=== PATIENT | male | born 1945 | race Caucasian/White ===

== ENCOUNTER → 2016-08-21 | Outpatient (CLI) | payer MEDICARE, BC ==
--- NOTE | 2016-08-23 11:26 | P.ARTDOP ---
Arterial Doppler LOWER EXTREMITY ARTERIAL DOPPLER: DATE OF SERVICE: 08/21/2016 Reason for study: Leg pain. Doppler waveforms: Multiphasic bilateral throughout. Pulse volume recording: Normal configuration. Pressure gradients: Nonsignificant. Ankle-brachial indices: Cannot occluded on the right. Greater than 1 on the left.. Toe pressures: 102 on the right, 121 on the left Impression: Normal flow pattern. Possibly some calcific wall disease not affecting flow..
== END | disposition home or self-care (01) ==
LOC: RADUSWWP 10:14
PROVIDERS: ATTEND Family Medicine
DX: I73.9 Peripheral vascular disease, unspecified (principal)
CPT/HCPCS: 93923

== ENCOUNTER → 2018-04-17 | Outpatient (CLI) | payer MEDICARE, BC ==
--- NOTE | 2018-04-17 19:30 | CT ---
EXAMINATION TYPE: CT abdomen pelvis w con DATE OF EXAM: 04/17/2018 COMPARISON: None HISTORY: Constipation. CT DLP: 2642 mGycm Automated exposure control for dose reduction was used. TECHNIQUE: Helical acquisition of images was performed from the lung bases through the pelvis. CONTRAST: Performed with Oral Contrast and with IV Contrast, patient injected with 100ml mL of Isovue 300. FINDINGS: Lung bases are clear. There is no pleural effusion. Heart size is normal. There is no pericardial eff usion. Liver spleen pancreas appear normal. The bile ducts are not dilated. There are clips from chol ecystectomy. Stomach appears normal. There is no adrenal mass. Kidneys show satisfactory contrast opacification. There is no hydronephrosi s. There is 1 cm cortical cyst posterior right kidney. The ureters are not dilated. There is no retro peritoneal adenopathy. Bladder distends smoothly. There is no inguinal hernia. There is no free fluid in the pelvis. There i s no ascites. Appendix appears normal. There is small umbilical hernia that contains fat. There is no evidence of free air. I see no intestinal wall thickening. There is no sign of a bowel obstruction. There is 15% anterior wedging of T12 that appears old. Abdominal aorta is atheromatous. There is mild retained fecal material throughout the large bowel. IMPRESSION: THERE IS EVIDENCE FOR MILD CONSTIPATION. NORMAL APPENDIX. NO SIGN OF ACUTE ABDOMEN AND PELVIS.
== END | disposition home or self-care (01) ==
LOC: RADCTMAIN 16:52
PROVIDERS: ATTEND Family Medicine
DX: K59.00 Constipation, unspecified (principal)
CPT/HCPCS: 82565; 84520; 74177; 36415; Q9967

== ENCOUNTER → 2019-08-21 | Outpatient (CLI) | payer MEDICARE, BC ==
[2019-08-21 12:48] LABS: Basophils # (A) 0.1 k/uL (0-0.2); Basophils % (A) 1 %; Eosinophils # (A) 0.4 k/uL (0-0.7); Eosinophils % (A) 4 %; HCT 52.7 % (39.0-53.0); HGB 16.9 gm/dL (13.0-17.5); Lymphocytes % (A) 19 %; MCH 29.2 pg (25.0-35.0); MCV 91.2 fL (80.0-100.0); Mean Platelet Volume 8.2; Monocytes # (A) 0.5 k/uL (0-1.0); Monocytes % (A) 5 %; Neutrophils # (A) 7.5 k/uL (1.3-7.7); Neutrophils % (A) 71 %; Platelet Count 326 k/uL (150-450); RBC 5.78 m/uL (4.30-5.90); RDW 12.9 % (11.5-15.5); WBC 10.6 k/uL (3.8-10.6)
[2019-08-21 14:20] LABS: Erythrocyte Sedimentation Rate 30 mm/hr (0-15)
[2019-08-21 21:20] LABS: C Reactive Protein 1.7 mg/dL (0.0-0.8)
== END | disposition home or self-care (01) ==
LOC: LABWHC1 12:00
PROVIDERS: ATTEND Podiatrist Foot & Ankle Surgery
DX: L08.9 Local infection of the skin and subcutaneous tissue, unspecified (principal); M19.90 Unspecified osteoarthritis, unspecified site; M10.9 Gout, unspecified
CPT/HCPCS: 36415; 84550; 85025; 85652; 86038; 86039; 86140; 86431

== ENCOUNTER → 2019-09-02 | Outpatient (CLI) | payer MEDICARE, BC ==
--- NOTE | 2019-09-03 15:03 | P.ARTDOP ---
Arterial Doppler LOWER EXTREMITY ARTERIAL DOPPLER: DATE OF SERVICE: 09/02/2019 Reason for study: Suspected lower extremity occlusive disease with left leg ul cer. Doppler waveforms: Multiphasic bilaterally throughout. Pulse volume recording: []. Pressure gradients: Mild gradient at the toe level. Ankle-brachial indices: Cannot occlude. Toe brachial indices: 0.59 on the right, 0.62 on the left Impression: Suspect calcific wall disease making upper levels unable to occlude. Waveforms and toe pressures suggests adequacy of pressure for healing. Pe rfusion suspected to be near normal. Clinical correlation recommended.
== END | disposition home or self-care (01) ==
LOC: RADUSWWP 13:18
PROVIDERS: ATTEND Family Medicine
DX: I73.9 Peripheral vascular disease, unspecified (principal)
CPT/HCPCS: 93923

== ENCOUNTER → 2019-09-11 | Outpatient (CLI) | payer MEDICARE, BC ==
--- NOTE | 2019-09-11 09:19 | US ---
EXAMINATION TYPE: US prostate transrectal DATE OF EXAM: 09/11/2019 COMPARISON: NONE CLINICAL HISTORY: Retention of Urine R33.9. Urinating issues per patient. Technologist called office- no PSA level available This examination was performed using the transrectal probe. EXAM MEASUREMENTS: Gland Size: 5.3 x 3.9 x 2.5 cm Volume: 26.4 ml Predicted PSA: 3.2 Actual PSA (if available):Not available at this time Peripheral gland appears coarse. Cystic appearing lesion in right apex region = 0.3 x 0.3 x 0.2 cm There may be some prostate calcification shadowing. No suspicious peripheral hypoechoic areas are josiah dent. There does appear to be a tiny cyst like area near the right apex. IMPRESSION: 1. Negative suspicious abnormalities prostate ultrasound. Predicted PSA = volume x 0.12 ng/ml Calculated Volume = 0.5236 x L x W x H
--- NOTE | 2019-09-11 10:04 | US ---
EXAMINATION TYPE: US pelvic limited DATE OF EXAM: 09/11/2019 COMPARISON: NONE CLINICAL HISTORY: Retention of Urine R33.9. Patient states urinating issues Bladder- anechoic Urinary jets not seen Postvoid images taken Postvoid volume = 34.8 ml Urinary bladder is sonolucent. Posterior wall appears normal. IMPRESSION: 1. Unremarkable male pelvic ultrasound
== END | disposition home or self-care (01) ==
LOC: RADUSWWP 07:05
PROVIDERS: ATTEND Family Medicine
DX: R33.9 Retention of urine, unspecified (principal)
CPT/HCPCS: 76857; 76872

== ENCOUNTER → 2019-10-09 | Outpatient (CLI) | payer MEDICARE, BC ==
--- NOTE | 2019-10-09 09:30 | CT ---
EXAMINATION TYPE: CT abdomen pelvis wo con DATE OF EXAM: 10/09/2019 COMPARISON: 04/17/2018 HISTORY: micro hematuria CT DLP: 1207 mGycm Examination of the solid and hollow viscera is limited given the lack of contrast. FINDINGS: LUNG BASES: No evidence for nodule. No evidence for infiltrate. Small sliding-type. LIVER/GB: Clips are noted. No space-occupying hepatic lesion. PANCREAS: No pancreatic mass identified. No inflammatory process seen. SPLEEN: No evidence for splenomegaly. No intrasplenic lesions seen. ADRENALS: No adrenal nodules identified. No evidence for thickening. KIDNEYS: Renal vascular calcifications noted. Hypoattenuating lesion lower pole right kidney is nonsp ecific given the lack of contrast although may reflect a small cyst. No nephrolithiasis. No hydroneph rosis. BOWEL: Appendix has a normal appearance. No evidence of bowel obstruction. No inflammatory process. Lymph nodes: No evidence for adenopathy greater than 1 cm. Abdominal aorta: Atheromatous changes seen. No evidence for aneurysm. Genital organs: No significant abnormality. Other: No significant abnormality. IMPRESSION: 1.Hypoattenuating lesion lower pole right kidney is nonspecific given the lack of contrast although m ay reflect a small cyst. Consider ultrasound correlation. 2. Renal vascular calcifications. No evidence for nephrolithiasis or hydronephrosis.
== END | disposition home or self-care (01) ==
LOC: RADCTMAIN 08:54
PROVIDERS: ATTEND Urology
DX: R31.1 Benign essential microscopic hematuria (principal)
CPT/HCPCS: 74176

== ENCOUNTER → 2019-12-06 | Outpatient (CLI) | payer MEDICARE, BC ==
--- NOTE | 2019-12-06 16:42 | MR ---
EXAMINATION TYPE: MR brain wo/w con DATE OF EXAM: 12/06/2019 COMPARISON: None HISTORY: Memory loss,recurrent falls CONTRAST: Standard multiplanar, multisequence MRI departmental protocol utilizing 12 mL intravenous Gadavist ga dolinium contrast. There is cerebral cortical atrophy. There is enlargement of the ventricles. There is no mass effect n or midline shift. There is no sign of intracranial hemorrhage. Diffusion images show no evidence of a n acute cortical infarct. There is 1.5 cm mucous retention cyst in the left maxillary sinus. The brai nstem is intact. On the T2 and FLAIR images there are multiple foci of increased signal adjacent to the lateral ventri cles. These are coalescent and measure up to 1 cm. Total number is more than 25. There are also some foci at the gonzalez-white matter junction of both parietal and frontal lobes. The cerebellum is intact. There is thinning of the corpus callosum. Sella turcica appears normal. The contrast images show no pathologic enhancement. There is normal enhancement of the venous sinuses . IMPRESSION: Cerebral atrophy. Mild hydrocephalus. White matter changes in both cerebral hemispheres that could relate to chronic small vessel ischemia or demyelinating disease.
== END | disposition home or self-care (01) ==
LOC: RADMRIMAIN 09:22
PROVIDERS: ATTEND Psychiatry & Neurology Neurology
DX: G91.9 Hydrocephalus, unspecified (principal); G31.9 Degenerative disease of nervous system, unspecified; R90.82 White matter disease, unspecified
CPT/HCPCS: 70553; A9585

== ENCOUNTER → 2021-03-15 | Outpatient (CLI) | payer MEDICARE, BC ==
--- NOTE | 2021-03-15 20:34 | CONS ---
CONSULTATION REASON FOR CONSULTATION: Sleep apnea. This patient is known to me. His last evaluation was done around 7 years ago. The patient was lost to followup and today he is coming in for re-evaluation regarding obstructive sleep apnea. He is known to have POLINA and the patient was given a CPAP unit. The patient has a functioning ResMed CPAP unit which is supposed to be set at a pressure of 13 cm of water. This was the last evaluation that was done on the machine. On today's compliancy evaluation, I noted the patient is currently on APAP mode, a pressure minimum of 5 and a maximum of 15. I also noted that the patient has lost a significant amount of weight, on the order of 55 pounds since his last evaluation. Based on the compliance data that was collected on the machine, the patient is on an automatic mode, as mentioned, and the patient has been averaging around 6 hours of APAP use per night. The average pressure delivered by the machine is around 9.1 cm of water. Leak is excessive at around 53 L/minute and he is using the AirFit F30 full-face mask. His AHI is down to 2.2. He is looking for alternative masks; something that covers his nose, knowing that the current mask that he has is causing a significant amount of leaks. His machine is functional. He is okay with APAP mode. He has no other new complaints otherwise for now. His comorbidities are extensive, including diabetes mellitus, hypertension, hyperlipidemia. While on the machine, the patient does not snore. He wakes up refreshed and alert. He is going to bed around 11 p.m., waking up at 9 a.m. in the morning and he spends approximately 10 hours in bed. As mentioned, he continues to lose weight. PAST MEDICAL HISTORY: 1. Obesity with significant weight loss. 2. Obstructive sleep apnea. 3. Diabetes mellitus. 4. Hypertension. 5. Hyperlipidemia. 6. History of skin cancer. PAST SURGICAL HISTORY: Includes cholecystectomy. DRUG ALLERGIES: NOT KNOWN. OUTPATIENT MEDICATION: Includes insulin, long-acting and short-acting. The doses are not known. Exact type is not known. He is also on amlodipine, atenolol, hydrochlorothiazide, Prilosec and aspirin. He is also on vitamin D supplements. I asked the patient to forward me the full medication list. SOCIAL HISTORY: Nonsmoker. No history of alcoholism. No history of IV drugs. FAMILY HISTORY: Negative for sleep apnea. REVIEW OF SYSTEMS: Fourteen-point review of systems was done. Of significance is the significant amount of weight loss that the patient has achieved over the past 6 years. No grinding of the teeth. No sleepwalking or sleeptalking. No anxiety or panic attacks. No heartburn. No chest pain. No altered mentation. PHYSICAL EXAMINATION: VITAL SIGNS: BP is 129/77, pulse 58, respirations 16, temperature 98.1, saturation 95% on room air. Neck size 18-1/2 inches. Height is 5 feet 10 inches, weight is 251, BMI 36. GENERAL APPEARANCE: Calm, comfortable. HEAD: Atraumatic, normocephalic. Neck is supple. No JVD. No goiter or neck masses. Mallampati class IV. LUNGS: Diminished; otherwise clear. Heart sounds are regular rate and rhythm. Normal S1, S2. No S3, S4. No murmurs. ABDOMEN: Soft, nontender. No organomegaly. EXTREMITIES: No edema. No cyanosis or clubbing. NEUROLOGIC: Awake and alert. There is no focal neurological deficit. IMPRESSION: 1. Symptomatic obstructive sleep apnea, currently on APAP mode, pressure minimum of 5, maximum of 15, with good compliancy. 2. Obesity with interval weight loss on the order of 50 pounds. Current body mass index is 36 and the patient's weight is 251. 3. Diabetes mellitus. 4. Hypertension. 5. Hyperlipidemia. 6. History of skin cancer, resected off the earlobe. PLAN: 1. Continue APAP mode at the same pressure settings, pressure minimum of 5, maximum of 15. 2. Discontinue the F30 and offer the patient an AirFit F20 medium-sized full-face mask. 3. Encourage further weight loss. 4. Keep the APAP mode. 5. See me back in a year's time in followup. Treatment is successful for now. MMODL / IJN: [id number] /
== END ==
LOC: SLEEP 14:32
PROVIDERS: ATTEND Internal Medicine Critical Care Medicine
DX: G47.33 Obstructive sleep apnea (adult) (pediatric) (principal); E66.9 Obesity, unspecified; E11.9 Type 2 diabetes mellitus without complications; I10 Essential (primary) hypertension; E78.5 Hyperlipidemia, unspecified; Z68.36 Body mass index [BMI] 36.0-36.9, adult; Z99.89 Dependence on other enabling machines and devices; Z85.828 Personal history of other malignant neoplasm of skin
CPT/HCPCS: 99211

== ENCOUNTER 2021-11-22 20:09 | Inpatient (IN) | payer MEDICARE, BC ==
[2021-11-22] MEDS ORDERED: SODIUM CHLORIDE 0.9% 1,000 ML IV ONE (20:47)
[2021-11-22] MEDS ORDERED: SODIUM CHLORIDE 0.9% 500 ML 500 ML IV ONE (20:47)
[2021-11-22 21:08] LABS: Basophils # (A) 0.1 k/uL (0-0.2); Basophils % (A) 1 %; Eosinophils # (A) 0.1 k/uL (0-0.7); Eosinophils % (A) 1 %; HCT 53.8 % (39.0-53.0); HGB 16.8 gm/dL (13.0-17.5); Lymphocytes # (A) 2.3 k/uL (1.0-4.8); Lymphocytes % (A) 24 %; MCH 29.5 pg (25.0-35.0); MCHC 31.3 g/dL (31.0-37.0); MCV 94.4 fL (80.0-100.0); Mean Platelet Volume 8.5; Monocytes # (A) 0.6 k/uL (0-1.0); Monocytes % (A) 6 %; Neutrophils # (A) 6.4 k/uL (1.3-7.7); Neutrophils % (A) 67 %; Platelet Count 244 k/uL (150-450); RDW 13.1 % (11.5-15.5); WBC 9.6 k/uL (3.8-10.6)
[2021-11-22 21:12] LABS: ALT 24 U/L (4-49); AST 41 U/L (17-59); African American GFR (CKD) >90 (>60 ml/min/1.73 sqM); Albumin 3.9 g/dL (3.5-5.0); Alkaline Phosphatase 150 U/L (38-126); Anion Gap 14 mmol/L; Blood Urea Nitrogen 19 mg/dL (9-20); Calcium 9.3 mg/dL (8.4-10.2); Carbon Dioxide 23 mmol/L (22-30); Chloride 102 mmol/L (98-107); Glucose 376 mg/dL (74-99); Non-African American GFR(CKD) 90 (>60 ml/min/1.73 sqM); Potassium 4.2 mmol/L (3.5-5.1); Sodium 139 mmol/L (137-145); Total Bilirubin 1.7 mg/dL (0.2-1.3); Total Protein 6.8 g/dL (6.3-8.2)
[2021-11-22 21:25] LABS: Glucose,Whole Blood 355 mg/dL (70-110)
[2021-11-22 21:30] LABS: Partial Thromboplastin Time 25.5 sec (22.0-30.0); Prothrombin Time 11.2 sec (9.0-12.0)
--- NOTE | 2021-11-22 21:40 | CT ---
EXAMINATION TYPE: CT brain wo con CT DLP: 1178.4 mGycm, Automated exposure control for dose reduction was used. DATE OF EXAM: 11/22/2021 9:25 PM COMPARISON: MRI brain 12/06/2019. CLINICAL INDICATION:Male, 76 years old with history of Altered mental status, TECHNIQUE: Brain: Axial CT images of the brain were obtained with coronal and sagittal reformats created and rev iewed. Contrast used: None. Oral contrast used: None. FINDINGS: Brain: Extra-axial spaces: No abnormal extra-axial fluid collections. Ventricular system: Dilatation in proportion to cerebral atrophy. Cerebral parenchyma: Cerebral atrophy. No acute intraparenchymal hemorrhage or mass effect. The gonzalez -white junction is well differentiated. Scattered hypoattenuating areas are seen within the white mat ter. Cerebellum: Unremarkable. Mass effect: No evidence of midline shift. Intracranial vasculature: unremarkable Soft tissues: Normal. Calvarium/osseous structures: No depressed skull fracture. Paranasal sinuses and mastoid air cells: Mild scattered paranasal sinus disease. Visualized orbits: Orbital contents are intact. IMPRESSION: 1. No acute intracranial process. 2. Nonspecific white matter changes, likely secondary to chronic small vessel ischemic disease.
[2021-11-22] MEDS ORDERED: INSULIN REGULAR 100 UNIT/ML VIAL (IV) SQ STA (22:56)
--- NOTE | 2021-11-22 23:01 | ED ---
Altered Mental Status HPI - General Chief Complaint: Altered Mental Status Stated Complaint: fall, ams, poss brain bleed Time Seen by Provider: 11/22/21 20:39 Source: patient Mode of arrival: wheelchair Limitations: no limitations - History of Present Illness Initial Comments: This 76-year-old male presents with after complaint of a fall. He appar ently will fall about once per week. He apparently did hit his head today. They saw their primary care physician and he wrote a outpatient prescription for a computed tomography scan of the brain but they brought the emergency department instead. relates the patient does have a history of dementia. He seems to be more confused over the past one week. The is quite exasperated with ability to take care of the patient at home. She states that it took 1.5 hours to get him dressed to go to doctor's office today. She states that his symptomatology for his dementia and mental confusion has extremely worsened over the last 1 week. - Related Data Home Medications Medication Instructions Recorded Confirmed Anastrozole 1 mg PO Q48H 11/22/21 11/22/21 Atorvastatin [Lipitor] 40 mg PO HS 11/22/21 11/22/21 Canagliflozin/Metformin HCl 1 tab PO BID 11/22/21 11/22/21 [Invokamet 150-1,000 mg Tablet] Donepezil HCl [Aricept] 10 mg PO DAILY 11/22/21 11/22/21 Famotidine [Pepcid] 40 mg PO BID 11/22/21 11/22/21 Insulin Aspart [NovoLOG Flexpen] 16 units SQ AC-BID@1200,1700 11/22/21 11/22/21 Insulin Aspart [NovoLOG Flexpen] 22 units SQ AC-BRKFST 11/22/21 11/22/21 Insulin Glargine,Hum.rec.anlog 40 units SQ HS 11/22/21 11/22/21 [Tousari Solostar] Losartan [Cozaar] 25 mg PO BID 11/22/21 11/22/21 Meclizine HCl 25 mg PO TID PRN 11/22/21 11/22/21 Tamsulosin HCl [Flomax] 0.4 mg PO DAILY 11/22/21 11/22/21 amLODIPine [Norvasc] 10 mg PO DAILY 11/22/21 11/22/21 hydroCHLOROthiazide 25 mg PO DAILY 11/22/21 11/22/21 Allergies Allergy/AdvReac Type Severity Reaction Status Date / Time No Known Allergies Allergy Verified 11/22/21 22:13 Review of Systems ROS Statement: Those systems with pertinent positive or pertinent negative responses have been documented in the HPI. ROS Other: All systems not noted in ROS Statement are negative. Past Medical History Past Medical History: Dementia, Diabetes Mellitus History of Any Multi-Drug Resistant Organisms: None Reported Past Surgical History: Cholecystectomy Past Psychological History: No Psychological Hx Reported Smoking Status: Never smoker Past Alcohol Use History: None Reported Past Drug Use History: None Reported General Exam Limitations: no limitations Course Vital Signs 11/22/21 20:13 Temperature 98.4 F Pulse Rate 82 Respiratory 18 Rate Blood Pressure 107/68 O2 Sat by Pulse 94 L Oximetry Medical Decision Making - Medical Decision Making The patient was seen and examined. All diagnostics are reviewed. Computed t omography scan of the brain was done and does not show any acute processes. The laboratories all essentially within normal limits except for elevation of his blood sugar. He is given some insulin IM. EKG is done and this shows a normal sinus rhythm at a rate of 75. There is no acute ST-T wave changes identified. The MT intervals 153, QRS duration is 92, and the QTC intervals 421. The states that she is significantly worried about his change in mental status over the past one week. She would like him admitted for further workup in this regard. She is unsure of her ability to take care of him at home. She is requesting neurology consultation. Patient will be admitted to internal medicine with neurology to consult. - Lab Data Result diagrams: 11/22/21 20:58 11/22/21 20:58 Lab Results 11/22/21 11/22/21 11/22/21 Range/Units 20:58 20:58 20:58 WBC 9.6 (3.8-10.6) k/uL RBC 5.70 (4.30-5.90) m/uL Hgb 16.8 (13.0-17.5) gm/dL Hct 53.8 H (39.0-53.0) % MCV 94.4 (80.0-100.0) fL MCH 29.5 (25.0-35.0) pg MCHC 31.3 (31.0-37.0) g/dL RDW 13.1 (11.5-15.5) % Plt Count 244 (150-450) k/uL MPV 8.5 Neutrophils % 67 % Lymphocytes % 24 % Monocytes % 6 % Eosinophils % 1 % Basophils % 1 % Neutrophils # 6.4 (1.3-7.7) k/uL Lymphocytes # 2.3 (1.0-4.8) k/uL Monocytes # 0.6 (0-1.0) k/uL Eosinophils # 0.1 (0-0.7) k/uL Basophils # 0.1 (0-0.2) k/uL PT 11.2 (9.0-12.0) sec INR 1.0 (<1.2) APTT 25.5 (22.0-30.0) sec Sodium 139 (137-145) mmol/L Potassium 4.2 (3.5-5.1) mmol/L Chloride 102 (98-107) mmol/L Carbon Dioxide 23 (22-30) mmol/L Anion Gap 14 mmol/L BUN 19 (9-20) mg/dL Creatinine 0.73 (0.66-1.25) mg/dL Est GFR (CKD-EPI)AfAm >90 (>60 ml/min/1.73 sqM) Est GFR (CKD-EPI)NonAf 90 (>60 ml/min/1.73 sqM) Glucose 376 H (74-99) mg/dL POC Glucose (mg/dL) (70-110) mg/dL POC Glu Balance Assembler ID Calcium 9.3 (8.4-10.2) mg/dL Total Bilirubin 1.7 H (0.2-1.3) mg/dL AST 41 (17-59) U/L ALT 24 (4-49) U/L Alkaline Phosphatase 150 H (38-126) U/L Ammonia (<30) umol/L Total Protein 6.8 (6.3-8.2) g/dL Albumin 3.9 (3.5-5.0) g/dL 11/22/21 11/22/21 Range/Units 20:58 21:24 WBC (3.8-10.6) k/uL RBC (4.30-5.90) m/uL Hgb (13.0-17.5) gm/dL Hct (39.0-53.0) % MCV (80.0-100.0) fL MCH (25.0-35.0) pg MCHC (31.0-37.0) g/dL RDW (11.5-15.5) % Plt Count (150-450) k/uL MPV Neutrophils % % Lymphocytes % % Monocytes % % Eosinophils % % Basophils % % Neutrophils # (1.3-7.7) k/uL Lymphocytes # (1.0-4.8) k/uL Monocytes # (0-1.0) k/uL Eosinophils # (0-0.7) k/uL Basophils # (0-0.2) k/uL PT (9.0-12.0) sec INR (<1.2) APTT (22.0-30.0) sec Sodium (137-145) mmol/L Potassium (3.5-5.1) mmol/L Chloride (98-107) mmol/L Carbon Dioxide (22-30) mmol/L Anion Gap mmol/L BUN (9-20) mg/dL Creatinine (0.66-1.25) mg/dL Est GFR (CKD-EPI)AfAm (>60 ml/min/1.73 sqM) Est GFR (CKD-EPI)NonAf (>60 ml/min/1.73 sqM) Glucose (74-99) mg/dL POC Glucose (mg/dL) 355 H (70-110) mg/dL POC Glu Balance Assembler ID Shantal Brandon Calcium (8.4-10.2) mg/dL Total Bilirubin (0.2-1.3) mg/dL AST (17-59) U/L ALT (4-49) U/L Alkaline Phosphatase (38-126) U/L Ammonia <9 (<30) umol/L Total Protein (6.3-8.2) g/dL Albumin (3.5-5.0) g/dL Disposition Clinical Impression: Altered mental status, Dementia, Recurrent falls, Head injury, Diabetes mellitus, Hyperglycemia Disposition: ADMITTED IP TO THIS [facility] Condition: Fair Is patient prescribed a controlled substance at d/c from ED?: No Time of Disposition: 23:16 Decision Date: 11/22/21 Decision Time: 23:16
[2021-11-22] MEDS ORDERED: ONDANSETRON 4 MG/2 ML VIAL IVP PRN (23:17)
[2021-11-22] MEDS ORDERED: NALOXONE 0.4 MG/ML 1 ML VIAL IV PRN (23:17)
[2021-11-22] MEDS ORDERED: ACETAMINOPHEN TAB 325 MG TAB PO PRN (23:17)
[2021-11-22] MEDS ORDERED: MECLIZINE 25 MG TAB PO PRN (23:21)
[2021-11-23 00:04] LABS: Appearance,Urine Clear (Clear); Bilirubin,Urine Negative (Negative); Blood,Urine Negative (Negative); Color,Urine Yellow; Glucose,Urine (UA) 4+ (Negative); Leukocyte Esterase,Urine Negative (Negative); Nitrite,Urine Negative (Negative); PH, Urine 5.5 (5.0-8.0); Protein,Urine Negative (Negative); Specific Gravity,Urine 1.034 (1.001-1.035); Urobilinogen,Urine <2.0 mg/dL (<2.0)
[2021-11-23 00:06] LABS: Ketones,Urine 2+ (Negative)
[2021-11-23 00:18] LABS: Amphetamine Screen,Urine Not Detected (NotDetected); Benzodiazepines Screen,Urine Not Detected (NotDetected); Cocaine Screen,Urine Not Detected (NotDetected); Methadone Screen, Urine Not Detected (NotDetected); Opiate Screen,Urine Not Detected (NotDetected); Phencyclidine Screen,Urine Not Detected (NotDetected); Tricyclic Antidepressant,Urine Not Detected (NotDetected); Urn Cannabinoid Scrn Not Detected (NotDetected)
[2021-11-23 00:19] LABS: Barbiturate Screen,Urine Not Detected (NotDetected); Oxycodone Screen, Urine Not Detected (NotDetected)
[2021-11-23 00:26] LABS: Glucose,Whole Blood 271 mg/dL (70-110)
[2021-11-23] MEDS: ANASTROZOLE 1 MG TAB PO SCH (00:35)
--- NOTE | 2021-11-23 02:44 | P.HPIM ---
History of Present Illness H&P Date: 11/22/21 Chief Complaint: FALL AT HOME 76 year old male with DM , Hypertension , Dementia patient brought in by his , for evaluation after sustaining a fall at home. patient seems to be alert and awake, is not at bed side at this time. patient reports that he has been falling frequently recently due to missing a step , or tripping over something, and sometimes he just feels his legs giving out for no reason. he denies any associated symptoms of dizziness, chest pain , SOB, or palpitations, he denies any focal neuro deficits, and denies any loss of consciousness. however this time he has hit his head, he denies any headache, denies being on any blood thinners. he claims to feeling perfectly fine at time of my evaluation. the reported to the ED, that it is getting extremly hard for her to take care of her . she claims that his dementia and mental status over all has been deteriorating pretty fast recently . she reports that it took her over 1.5 hrs to get him to get dressed and go to the doctor for evaluation today. there is no report of any fever, chills, urinary changes, GI bleeding, abd pain , chest pain , diarrhea, headache, or any other focal neuro deficits. workup in the ED was pretty much benign Brain CT no acute pathology patient denies smoking , illicit drugs and alcohol Review of Systems Pertinent positives as noted in HPI. All other systems were reviewed and are negative Past Medical History Past Medical History: Dementia, Diabetes Mellitus History of Any Multi-Drug Resistant Organisms: None Reported Past Surgical History: Cholecystectomy Past Psychological History: No Psychological Hx Reported Smoking Status: Never smoker Past Alcohol Use History: None Reported Past Drug Use History: None Reported - Past Family History family Additional Family Medical History / Comment(s): DM, CAD Medications and Allergies Home Medications Medication Instructions Recorded Confirmed Type Anastrozole 1 mg PO Q48H 11/22/21 11/22/21 History Atorvastatin [Lipitor] 40 mg PO HS 11/22/21 11/22/21 History Canagliflozin/Metformin HCl 1 tab PO BID 11/22/21 11/22/21 History [Invokamet 150-1,000 mg Tablet] Donepezil HCl [Aricept] 10 mg PO DAILY 11/22/21 11/22/21 History Famotidine [Pepcid] 40 mg PO BID 11/22/21 11/22/21 History Insulin Aspart [NovoLOG Flexpen] 16 units SQ AC-BID@1200,1700 11/22/21 11/22/21 History Insulin Aspart [NovoLOG Flexpen] 22 units SQ AC-BRKFST 11/22/21 11/22/21 History Insulin Glargine,Hum.rec.anlog 40 units SQ HS 11/22/21 11/22/21 History [Tousari Solostar] Losartan [Cozaar] 25 mg PO BID 11/22/21 11/22/21 History Meclizine HCl 25 mg PO TID PRN 11/22/21 11/22/21 History Tamsulosin HCl [Flomax] 0.4 mg PO DAILY 11/22/21 11/22/21 History amLODIPine [Norvasc] 10 mg PO DAILY 11/22/21 11/22/21 History hydroCHLOROthiazide 25 mg PO DAILY 11/22/21 11/22/21 History Allergies Allergy/AdvReac Type Severity Reaction Status Date / Time No Known Allergies Allergy Verified 11/22/21 22:13 Physical Exam Vitals: Vital Signs Temp Pulse Resp BP Pulse Ox 11/22/21 20:13 98.4 F 82 18 107/68 94 L Intake and Output 11/22/21 11/22/21 11/23/21 14:59 22:59 06:59 Other: Weight 105.233 kg Constitutional: No acute distress, conversant, pleasant Eyes: Anicteric sclerae, moist conjunctiva, Pupils equal round reactive to light ENMT: NC/AT, left ear with some deformity in the pinna of external ear due to surgical excision of cancer Oropharynx clear, no erythema, or exudates Neck: Supple, , no masses, or JVD No carotid bruits No thyromegaly Lungs: Clear to auscultation Clear to percussion Normal respiratory effort, no accessory muscle use Cardiovascular: Heart regular in rate and rhythm, No murmurs, gallops, or rubs No peripheral edema Abdominal: Soft Nontender, no guarding, rebound or rigidity Abdomen moving with respiration Normoactive bowel sounds No hepatomegaly, No splenomegaly No palpable mass No abdominal wall hernia noted Skin: Normal temperature, tone, texture, turgor No induration No subcutaneous nodules No rash, lesions No ulcers Extremities: No digital cyanosis No clubbing Pedal pulses intact and symmetrical Radial pulses intact and symmetrical No calf tenderness Psychiatric: Alert and oriented to person, place and time Appropriate affect fair judgement Neuro Muscles Strength 5/5 in all 4 extremities Sensation to light touch grossly present throughout Cranial nerves II-XII grossly intact No focal sensory deficits Lymphatics: no palpable cervical or supraclavicular , or inguinal lymph nodes Results CBC & Chem 7: 11/22/21 20:58 11/22/21 20:58 Labs: Abnormal Lab Results - Last 24 Hours (Table) 11/22/21 11/22/21 11/22/21 Range/Units 20:58 20:58 21:24 Hct 53.8 H (39.0-53.0) % Glucose 376 H (74-99) mg/dL POC Glucose (mg/dL) 355 H (70-110) mg/dL Total Bilirubin 1.7 H (0.2-1.3) mg/dL Alkaline Phosphatase 150 H (38-126) U/L Assessment and Plan Assessment: acute metabolic encephalopathy , resolved frequent falls progressive dementia UA showed no evidence of infectious process no leukocytosis , no fever blood work over all unremarkable except for hyperglycemia fall precautions neurology eval Brain CT no acute pahtology EKG NSR check Vitd D 25 hydroxy, B12 level chronic conditions DM , hyperglycemia , check A1C resume insulin hypertension , controlled , resume homemeds amlodipin, losartan , HCTZ HLD , resume statin DVT PPX lovenox full code
[2021-11-23 08:39] LABS: Glucose,Whole Blood 287 mg/dL (70-110)
[2021-11-23] MEDS ORDERED: CANAGLIFLOZIN PO SCH (09:00)
[2021-11-23] MEDS ORDERED: [UNRECOGNIZED DRUG - OTHER] PO SCH (09:00)
[2021-11-23] MEDS ORDERED: METFORMIN HCL PO SCH (09:00)
[2021-11-23] MEDS: FAMOTIDINE 20 MG TAB PO SCH ×2 (09:51→22:40)
[2021-11-23] MEDS: ENOXAPARIN 40 MG/0.4 ML SYRINGE SQ SCH (09:51)
[2021-11-23] MEDS: LOSARTAN 25 MG TAB PO SCH ×2 (09:52→22:41)
[2021-11-23] MEDS: DONEPEZIL 10 MG TAB PO SCH (09:52)
[2021-11-23] MEDS: amLODIPine 10 MG TAB PO SCH (09:52)
[2021-11-23] MEDS: TAMSULOSIN 0.4 MG CAP.ER.24H PO SCH (09:52)
[2021-11-23] MEDS: hydroCHLOROthiazide 25 MG TAB PO SCH (09:52)
[2021-11-23 09:58] LABS: African American GFR (CKD) 105.5 (60.0-200.0); Anion Gap 12.1 mmol/L (10.00-18.00); Blood Urea Nitrogen 16.8 mg/dL (9.0-27.0); Carbon Dioxide 24.9 mmol/L (20.0-27.5); Potassium 3.6 mmol/L (3.5-5.5)
[2021-11-23] MEDS: INSULIN ASPART (NovoLOG) 100 UNIT/ML VIAL SQ SCH ×3 (09:59→17:24)
[2021-11-23] MEDS ORDERED: HALOPERIDOL LACTATE 5 MG/ML 1 ML VIAL IVP PRN (12:38)
[2021-11-23] MEDS ORDERED: HALOPERIDOL LACTATE 5 MG/ML 1 ML VIAL IM PRN (13:33)
--- NOTE | 2021-11-23 13:37 | P.CN ---
Psychiatric Consult - . Consult date: 11/23/21 Consult:: 11/23/21 13:08 IDENTIFYING DATA: This patient is a 76-year-old male who currently lives with his at home, has history of dementia REASON FOR REFERRAL: Psychiatry was consulted for dementia with behavioral disturbance HISTORY OF PRESENT ILLNESS: The patient presented to the hospital on 11/22 and came into the ER with his . apparently had stated the patient had a fall recently and has been having a fall and free week or so. She is stating that his beginning to be more difficult to take care of him at home. He apparently hit his head recently after a fall. He apparently has a history of dementia and has been more confused lately according to . Patient had a computed tomography scan of his brain which did not show any acute changes. Patient's UDS was negative. Patient was seen today laying in bed and was attempting to have the technical operations specialist putt electrodes on him and was agreeable to speak to process description writer. Patient was oriented to his name only, did not know where he was and did not know today's date. He was tangential at times and illogical. She was attending to cooperate however was inappropriate at times. He did admit to feeling irritable and had an irritable tone of voice. He also did admit to some mood swings. He claims that "don't get me upset now". He denied any depression or any anxiety at this time. He has very poor insight appears to be chronic and very poor judgment. He denies any problems with sleep or appetite. At this time patient denies any suicidal or homical ideations, intent or plan. Patient denies any auditory, visual hallucinations. patient denies using any r ecreational drugs. process description writer called patients Concha, she states that patient has had a decline in his functional status, unable to dress himself or care for himself. She states that he has been irritable lately for the past week or so. no violence. has been more demanding. having poor sleep. she states that he has not endorsed any auditory or visual hallucinations or no suicidal ideations or homicidal ideations Case Maker was a poor historian and was not able to provide most of the rest of the history. PAST PSYCHIATRIC HISTORY: Patient has a a history of dementia. patient is currentlyu on aricept at nightime as a cognitive enhancer. Patient denies any previous psychiatric hospitalizations. Patient denies any psychiatric outpatient follow-up. Past Medical History: Dementia, Diabetes Mellitus ALLERGIES: as per EMR. CHEMICAL DEPENDENCY HISTORY: as per HPI. FAMILY PSYCHIATRIC/SUBSTANCE USE HISTORY: unable to assess SOCIAL HISTORY: unable to assess. Patient lives at home with his . MENTAL STATUS EXAM: General Appearance: Patient appears to be overweight, eldderly, stated age is alert, pleasant, and irritable at times, uncooperative. Patient appears to have fair hygiene and grooming wearing hospital gown with poor eye contact. Behavior: Patient is calmly lying in bed without any agitated behavior. irritable at times but attempting to cooperate. Speech: Patient's speech is fluent and nonpressured. concrete Mood/Affect: Patient reports their mood is "ok", affect is congruent and constricted Suicidality/Homicidality: Patient denies having any suicidal or homicidal i deation intent or plan. Perceptions: Patient denies any visual hallucinations and denies any auditory hallucinations Though content/process: There is no evidence of any delusional thought content. he is concrete, poverty of content. illogical at times. Memory and concentration: AOX1, does not know todays date or place, poor conctration. Cannot spell "WORLD" backwards Judgment and insight: chornically limited IMPRESSIONS: Dementia with behavioral disturbances PLAN: -At this time patient DOES NOT meet criteria for inpatient psychiatric admission. -Patient DOES NOT have decision making capacity at this time and is unable to reason through and communicate/appreciate the risks, benefits and alternatives to treatment. -Delirium precautions recommended with patient including - avoiding use of narcotics and STRAIGHT TOOTH GEAR GENERATOR OPERATOR sedatives, limit anticholinergic medications when possible, frequent re-orientation, minimize use of restraints, open window shades during the day and close them at night -Would recommend the following medication changes/additions: start seroquel 25 mg qhs for sleep/mood stabilization/aggresion. start depakote 250 mg bid for mood stabilization. -Communicated plan to patient's nurse -Will continue to follow along -Please contact with any questions.
--- NOTE | 2021-11-23 14:19 | P.CNNES ---
History of Present Illness Consult date: 11/23/21 Requesting physician: Tre Minaya Reason for Consult: Confusion History of Present Illness: Patient is a 76-year-old male was brought to the hospital yesterday at 8:52 PM for altered mental status. Patient has dementia, not able to provide any history. He is periodically yelling "help", "I have been held against my will". He appears somewhat paranoid as mentioned in the examination section. I spoke to patient's on the phone, who provided with a history. She mentioned that patient has history of slight dementia for last 1 year. He was still functioning well. However it has rapidly got worse in the last 6 days. Patient's mentions that he fell about a week ago and he has been confused since then. He is very confused, does not know what day is it, cannot find things, completely disoriented, agitated. He had undergone computed tomography scan of head as an outpatient by his primary physician Dr. Garvin, which was read as normal. He also has been complaining of dizziness, cannot get dressed, not functioning at all. Patient does have urgency of urination, cannot hold urine if not close to the bathroom. She also mentions that he has been having eyes staring spells in space. Someone talks to him, he cannot respond. He just sits there until he snaps out of it. It is occurring about 2-3 times a day, lasting for 5 minutes each. One time she noticed that his face was slightly dr oopy. Vital signs arrival blood pressure 107/68 pulse rate 82 temperature 98.4. Blood test shows normal CBC, PT/PTT, normal CMP. Blood glucose is elevated to 76. Vitamin B12 453, vitamin D 22.3. UA negative. Urine drug screen negative. Hemoglobin A1c 8.9. CT head showed no acute process. Nonspecific white matter changes, likely secondary to chronic small vessel ischemic disease. EKG shows sinus rhythm. Borderline left axis deviation. Patient had an MRI of the brain performed on 12/06/2019, which reported as mild hydrocephalus. I personally reviewed current CT head and previous MRI. No definitive evidence of hydrocephalus. Amount of central atrophy is somewhat consistent with amount of cortical atrophy. Patient has history of diabetes for last 35 years and hypertension. No history of tobacco or alcohol use. Home medications include Flomax, meclizine, insulin, metformin, donepezil 10 mg, amlodipine 10 mg, losartan 25 mg twice a day, HCTZ 25 mg daily, Pepcid, Lipitor 40 mg and Anastrozole. He has been on donepezil for last 1 year. They have one child who lives in [place]. Review of Systems Patient would not cooperate with the examination, all review of systems. I spoke to patient's , who denied any other significant issues except as mentioned in HPI. Spoke to the nurses well. ROS unobtainable: due to mental status Past Medical History Past Medical History: Dementia, Diabetes Mellitus History of Any Multi-Drug Resistant Organisms: None Reported Past Surgical History: Cholecystectomy Past Psychological History: No Psychological Hx Reported Smoking Status: Never smoker Past Alcohol Use History: None Reported Past Drug Use History: None Reported - Past Family History family Additional Family Medical History / Comment(s): DM, CAD Father Family Medical History: Myocardial Infarction (MO) Additional Family Medical History / Comment(s): Father "rather young" of a MO Mother Family Medical History: Diabetes Mellitus, Renal Disease Additional Family Medical History / Comment(s): Mother had diabetes and refused dialysis. Medications and Allergies Home Medications Medication Instructions Recorded Confirmed Type Anastrozole 1 mg PO Q48H 11/22/21 11/22/21 History Atorvastatin [Lipitor] 40 mg PO HS 11/22/21 11/22/21 History Canagliflozin/Metformin HCl 1 tab PO BID 11/22/21 11/22/21 History [Invokamet 150-1,000 mg Tablet] Donepezil HCl [Aricept] 10 mg PO DAILY 11/22/21 11/22/21 History Famotidine [Pepcid] 40 mg PO BID 11/22/21 11/22/21 History Insulin Aspart [NovoLOG Flexpen] 16 units SQ AC-BID@1200,1700 11/22/21 11/22/21 History Insulin Aspart [NovoLOG Flexpen] 22 units SQ AC-BRKFST 11/22/21 11/22/21 History Insulin Glargine,Hum.rec.anlog 40 units SQ HS 11/22/21 11/22/21 History [Tozachary Solostar] Losartan [Cozaar] 25 mg PO BID 11/22/21 11/22/21 History Meclizine HCl 25 mg PO TID PRN 11/22/21 11/22/21 History Tamsulosin HCl [Flomax] 0.4 mg PO DAILY 11/22/21 11/22/21 History amLODIPine [Norvasc] 10 mg PO DAILY 11/22/21 11/22/21 History hydroCHLOROthiazide 25 mg PO DAILY 11/22/21 11/22/21 History Allergies Allergy/AdvReac Type Severity Reaction Status Date / Time No Known Allergies Allergy Verified 11/22/21 22:13 Physical Examination - Vital Signs Vital Signs: Vital Signs Temp Pulse Resp BP Pulse Ox 11/23/21 10:00 90 18 127/70 94 L 11/23/21 03:02 69 16 126/69 95 11/22/21 20:13 98.4 F 82 18 107/68 94 L Intake and Output 11/22/21 11/23/21 11/23/21 22:59 06:59 14:59 Other: Weight 105.233 kg Patient is an elderly male, in no acute distress. Patient is alert awake, very confused, periodically yelling "help! I have been held against my will". He states "I have been denied my rights". He did not allow me to examine, stating that "my family doctor did full examination and I have no reason to undergo further examination". He would not tell me the month or the year, appears he does not know either. Could not tell the city or state he lives in. He appears paranoid stating "you are a scam, may be it's about money" Speech and language functions are normal. Patient can name and repeat very well. No aphasia or dysarthria. Attention, concentration and fund of knowledge is very limited. On cranial nerve examination, pupils are equal, round and reacting to light, he did not cooperate with visual field testing. Extraocular muscles are intact with no nystagmus. Face is symmetric, tongue protrudes to the midline. He did not cooperate with testing for the palatal elevation, or the shoulder shrug. His hearing appears fairly intact. On muscle strength testing, there is no pronator drift. Patient did not cooperate with detailed examination. It appears he resists any movement, and appears very strong in his arms and legs. He moves all 4 extremities equally. Deep tendon reflexes he did not get me examine. Plantars are withdrawal. Sensory to touch did not cooperate. Cerebellar function did not cooperate. Tone and bulk of muscles normal. Gait deferred.. On general examination, there is no carotid bruit or murmur, S1-S2 audible. Chest is clear on consultation. Abdomen is soft nontender. No organomegaly, bowel sounds present. Peripheral pulses are present. No edema. Results - Laboratory Findings CBC and BMP: 11/22/21 20:58 11/23/21 05:39 Abnormal Lab Findings: Abnormal Labs 11/22/21 11/22/21 11/22/21 20:58 20:58 21:24 Hct 53.8 H BUN/Creatinine Ratio Glucose 376 H POC Glucose (mg/dL) 355 H Hemoglobin A1c Total Bilirubin 1.7 H Alkaline Phosphatase 150 H Vitamin D 25-Hydroxy Urine Glucose (UA) Urine Ketones 11/22/21 11/23/21 11/23/21 23:50 00:24 05:39 Hct BUN/Creatinine Ratio 24.00 H Glucose 316 H POC Glucose (mg/dL) 271 H Hemoglobin A1c Total Bilirubin Alkaline Phosphatase Vitamin D 25-Hydroxy 22.3 L Urine Glucose (UA) 4+ H Urine Ketones 2+ H 11/23/21 11/23/21 05:39 08:38 Hct BUN/Creatinine Ratio Glucose POC Glucose (mg/dL) 287 H Hemoglobin A1c 8.9 H Total Bilirubin Alkaline Phosphatase Vitamin D 25-Hydroxy Urine Glucose (UA) Urine Ketones Assessment and Plan Assessment: * Altered mental status, probable due to dementia with behavioral disturbance. * Staring spells, rule out seizures versus TIA, versus behavioral related spells. * Diabetes, poorly controlled. Plan: * Patient has presented with behavioral disturbances related to dementia. We will consult psychiatry. * Continue Aricept 10 mg daily. We will also start Namenda 5 mg twice a day. After one week, the dose can be escalated gradually to 10 mg twice a day. * Haldol 5 mg IV/IM every 6 hours when necessary agitation pending psychiatry evaluation and recommendations. * EEG rule out epileptiform activity. * MRI brain. * Recommend optimize control of diabetes. * Patient currently not on any antiplatelet medication. He does have vascular risk factors. Start aspirin 81 mg daily. * Discussed with patient's in detail. * Neurology will follow. Thank you for the consult.
--- NOTE | 2021-11-23 14:57 | P.PN ---
Subjective Progress Note Date: 11/23/21 Hospital course: Patient is a 76-year-old male with a past medical history of dementia, hypertension, and diabetes mellitus. Patient presented to our facility 11/22/21 with a chief complaint of worsening mentation and recurrent falls at home. Per documentation patient's mental status has been significantly deteriorating rapidly and his is no longer able to care for him in their home. CT head negative for acute intercranial process. CBC, coags, and CMP showing no significant abnormalities. Urinalysis negative for infection and urine drug screen negative. EKG revealed sinus rhythm at 75 bpm with n occasional PVC and no significant T-wave or ST abnormalities showing no signs of acute ischemia. Physical exam: Patient seen and fully evaluated at bedside this morning. Patient alert to self only and confused to place, time, and situation. Patient aggressive and not following commands. Patient stating that, "you're the Lady of and are not ready to yet so go away". During assessment patient swung fist in attempt to strike and was able to successfully kick me when I was assessing his peripheral pulses and lower extremities for edema. Unable to reorient patient at this time. Sitter to be brought to bedside to maintain patient's safety. Vital signs reviewed and stable. General: Nontoxic, no distress and appears stated age. Derm: Skin warm and dry, normal coloration for ethnicity. Head: Atraumatic, normocephalic and symmetric. Eyes: EOMs intact, no lid lag, and anicteric sclera Mouth: no lip lesions, mucus membranes moist Cardiovascular: regular rate and rhythm with normal S1S2, no murmur, positive posterior tibial pulses bilaterally, and cap refill < 2 seconds. Lungs: Respirations even, regular, and unlabored on room air. Lungs CTA bilaterally, no rhonchi, no rales, no wheezing, and no accessory muscle usage. Abdominal: soft, nontender to palpation, no guarding, no appreciable organomegaly Ext: ROM intact. No gross muscle atrophy, no edema, no contractures Neuro: Speech clear, face symmetrical and CN II-XII grossly intact with no noted focal neuro deficits Psych: Alert and oriented to person only and is confused to place, time, and situation. Patient exhibiting aggressive behaviors and difficult to reorientate. Assessment and Plan of Care: Dementia with aggressive behaviors/behavioral disturbances Recurrent falls -CT head negative for acute intercranial process revealing nonspecific white matter changes likely secondary to chronic small vessel ischemic disease. -Psychiatry following, appreciate further recommendations -Neurology following, appreciate further recommendations -Case management consulted for assistance with placement. -TSH with free T4 to be completed. -MRI and EEG to be completed per recommendations of neurology -Psychiatry starting patient on Seroquel 25 mg nightly and Depakote 250 mg twice daily for mood stabilization. -Fall precautions and neuro checks to remain in place. Hypertension -Monitor vital signs and continue daily medication regimen with losartan, amlodipine and hydrochlorothiazide. Diabetes mellitus -Glycemic protocol with long-acting Levemir 40 units nightly and scheduled NovoLog with meals. CODE STATUS: Full code DVT prophylaxis: Lovenox Discussed with: Patient and RN Anticipated discharge date: Clinical course to determine Anticipated discharge place: Home versus SNF A total of 35 minutes was spent on the care of this complex patient more than 50% of the time was spent in counseling and care coordination. Objective - Vital Signs Vital signs: Vital Signs Temp 98.4 F 11/22/21 20:13 Pulse 69 11/23/21 03:02 Resp 16 11/23/21 03:02 BP 126/69 11/23/21 03:02 Pulse Ox 95 11/23/21 03:02 FiO2 Intake & Output 11/22/21 11/23/21 11/23/21 18:59 06:59 18:59 Weight 105.233 kg - Labs CBC & Chem 7: 11/22/21 20:58 11/23/21 05:39 Labs: Abnormal Lab Results - Last 24 Hours (Table) 11/22/21 11/22/21 11/22/21 Range/Units 20:58 20:58 21:24 Hct 53.8 H (39.0-53.0) % Glucose 376 H (74-99) mg/dL POC Glucose (mg/dL) 355 H (70-110) mg/dL Total Bilirubin 1.7 H (0.2-1.3) mg/dL Alkaline Phosphatase 150 H (38-126) U/L Urine Glucose (UA) (Negative) Urine Ketones (Negative) 11/22/21 11/23/21 Range/Units 23:50 00:24 Hct (39.0-53.0) % Glucose (74-99) mg/dL POC Glucose (mg/dL) 271 H (70-110) mg/dL Total Bilirubin (0.2-1.3) mg/dL Alkaline Phosphatase (38-126) U/L Urine Glucose (UA) 4+ H (Negative) Urine Ketones 2+ H (Negative)
[2021-11-23 14:59] LABS: Glucose,Whole Blood 161 mg/dL (70-110)
[2021-11-23] MEDS: DIVALPROEX ER 250 MG TAB.ER.24H PO SCH ×2 (15:09→22:54)
[2021-11-23 21:27] LABS: Glucose,Whole Blood 313 mg/dL (70-110)
[2021-11-23] MEDS: ATORVASTATIN 40 MG TAB PO SCH (22:40)
[2021-11-23] MEDS: QUEtiapine 25 MG TAB PO SCH (22:41)
[2021-11-23] MEDS: INSULIN DETEMIR (LEVEMIR) 100 UNIT/ML SYR SQ SCH (22:41)
--- NOTE | 2021-11-24 00:38 | EEG ---
ELECTROENCEPHALOGRAM REPORT PREAMBLE: This is a 76-year-old male with altered mental status, dementia and staring spells. This study is performed to rule out any epileptiform activity. EEG FINDINGS: This is a 21-channel digital EEG recorded with video competent, utilizing 10/20 international system with referential and bipolar montages. Background consists of moderately well-developed, not very well regulated, mixed frequencies of 5-7 hertz theta activity in posterior head region in bilateral hemispheric region. Background does not seem to be reactive to eye opening and closing. Photic stimulation was not performed. Different stages of sleep were not seen. No focal or generalized epileptiform activity was seen. IMPRESSION: This is an abnormal EEG due to background slowing of moderate degree. This is suggestive of generalized cerebral dysfunction as can be seen with toxic metabolic encephalopathy or related to diffuse structural brain abnormality. No epileptiform activity was seen. MMODL / IJN: [id number] /
[2021-11-24 07:02] LABS: Glucose,Whole Blood 205 mg/dL (70-110)
[2021-11-24] MEDS: TAMSULOSIN 0.4 MG CAP.ER.24H PO SCH (09:30)
[2021-11-24] MEDS: DONEPEZIL 10 MG TAB PO SCH (09:30)
[2021-11-24] MEDS: MEMANTINE 5 MG TAB PO SCH ×2 (09:30→22:32)
[2021-11-24] MEDS: hydroCHLOROthiazide 25 MG TAB PO SCH (09:30)
[2021-11-24] MEDS: INSULIN ASPART (NovoLOG) 100 UNIT/ML VIAL SQ SCH ×3 (09:30→17:48)
[2021-11-24] MEDS: ASPIRIN 81 MG PO SCH (09:30)
[2021-11-24] MEDS: LOSARTAN 25 MG TAB PO SCH ×2 (09:30→22:31)
[2021-11-24] MEDS: FAMOTIDINE 20 MG TAB PO SCH ×2 (09:30→22:31)
[2021-11-24] MEDS: amLODIPine 10 MG TAB PO SCH (09:30)
[2021-11-24] MEDS: ENOXAPARIN 40 MG/0.4 ML SYRINGE SQ SCH (09:31)
[2021-11-24] MEDS: DIVALPROEX ER 250 MG TAB.ER.24H PO SCH ×2 (10:10→22:31)
[2021-11-24 11:03] LABS: Glucose,Whole Blood 179 mg/dL (70-110)
--- NOTE | 2021-11-24 13:23 | P.PN ---
Subjective Progress Note Date: 11/24/21 Hospital course: Patient is a 76-year-old male with a past medical history of dementia, hypertension, and diabetes mellitus. Patient presented to our facility 11/22/21 with a chief complaint of worsening mentation and recurrent falls at home. Per documentation patient's mental status has been significantly deteriorating rapidly and his is no longer able to care for him in their home. CT head negative for acute intercranial process. CBC, coags, and CMP showing no significant abnormalities. Urinalysis negative for infection and urine drug screen negative. EKG revealed sinus rhythm at 75 bpm with n occasional PVC and no significant T-wave or ST abnormalities showing no signs of acute ischemia. Progress Note Update: Patient seen and fully evaluated at bedside this morning. Patient alert to self only and confused to place, time, and situation. Patient aggressive and not following commands. Patient stating that, "you're the Lady of and are not ready to yet so go away". During assessment patient swung fist in attempt to strike and was able to successfully kick me when I was assessing his peripheral pulses and lower extremities for edema. Unable to reorient patient at this time. Sitter to be brought to bedside to maintain patient's safety. Physical exam: Gen: awake, alert HEENT: normocephalic, atraumatic, good hearing acuity, moist mucous membranes Resp: good air exchange, breathing comfortably with no accessory muscle use CVS: good distal perfusion x 4, GI: soft, NTTP, ND : no SPT, no CVAT, herrera catheter not present MSK: no pitting edema, no clubbing Neuro: non-focal, moving all extremities Psych: cooperative, euthymic mood Assessment and Plan of Care: Dementia with aggressive behaviors/behavioral disturbances Recurrent falls -CT head negative for acute intercranial process revealing nonspecific white matter changes likely secondary to chronic small vessel ischemic disease. -Psychiatry following, appreciate further recommendations -Neurology following, appreciate further recommendations -Case management consulted for assistance with placement. -TSH with free T4 to be completed. -MRI pending -EEG shows clinical background slowing, but no epileptiform activity -Psychiatry starting patient on Seroquel 25 mg nightly and Depakote 250 mg twice daily for mood stabilization. -Fall precautions and neuro checks to remain in place. Hypertension -Monitor vital signs and continue daily medication regimen with losartan, amlodipine and hydrochlorothiazide. Diabetes mellitus -Glycemic protocol with long-acting Levemir 40 units nightly and scheduled NovoLog with meals. CODE STATUS: Full code DVT prophylaxis: Lovenox Anticipated discharge date: Clinical course to determine Anticipated discharge place: Home versus SNF Objective - Vital Signs Vital signs: Vital Signs Temp 98.0 F 11/24/21 12:21 Pulse 79 11/24/21 12:21 Resp 16 11/24/21 02:00 BP 104/64 11/24/21 12:21 Pulse Ox 92 L 11/24/21 12:21 FiO2 Intake & Output 11/23/21 11/24/21 11/24/21 18:59 06:59 18:59 Output Total 400 Balance -400 Weight 105.233 kg Output: Urine 400 Other: Voiding Method Urinal # Voids 1 2 1 # Bowel Movements 1 - Labs CBC & Chem 7: 11/22/21 20:58 11/23/21 05:39 Labs: Abnormal Lab Results - Last 24 Hours (Table) 11/23/21 11/23/21 11/24/21 Range/Units 14:57 21:24 07:01 POC Glucose (mg/dL) 161 H 313 H 205 H (70-110) mg/dL 11/24/21 Range/Units 11:00 POC Glucose (mg/dL) 179 H (70-110) mg/dL
[2021-11-24] MEDS ORDERED: QUEtiapine 25 MG TAB PO PRN (13:24)
--- NOTE | 2021-11-24 13:30 | P.PN ---
Progress Note - Text Progress Note Date: 11/24/21 Interval History: Patient was seen today for psychiatric follow-up regarding patient's dementia with behavioral disturbances. Patient was laying in bed today and watching television. He appeared to be more cooperative today and less irritable with the technical report writer. He was attempting to answer all questions. He believes that he was in a "experimental lab" and did not know he was in hospital paper. He knew his full name and age. He believed that today was 12/01/2021, does not know the current president. He is denying any changes at all and his mood denying any depression or ever states that he does feel "irritated sometimes". He apparently claims that he slept better last night. He does not know why he is in the hospital however has been compliant with treatment. Nurse taking care of patient states that he was initially upset and angry when he was moved up to the medical floors however was able to calm down without receiving prn meds. At this time patient denies any suicidal or homical ideations, intent or plan. Patient denies any auditory, visual hallucinations and denies any paranoia or delusions. Patient denies any side effects from the medications and has been compliant with meds. Mental Status Exam: General Appearance: Patient appears to be overweight, eldderly, stated age is alert, pleasant, and less irritable. Patient appears to have fair hygiene and grooming wearing hospital gown with improving eye contact. Behavior: Patient is calmly lying in bed without any agitated behavior. attempting to cooperate. Speech: Patient's speech is fluent and nonpressured. concrete Mood/Affect: Patient reports their mood is "irritated sometimes", affect is congruent and constricted Suicidality/Homicidality: Patient denies having any suicidal or homicidal ideation intent or plan. Perceptions: Patient denies any visual hallucinations and denies any auditory hallucinations Though content/process: There is no evidence of any delusional thought content. he is concrete, poverty of content. illogical at times. Memory and concentration: AOX1, does not know todays date or place, improved concentration. Judgment and insight: chornically limited IMPRESSIONS: Dementia with behavioral disturbances PLAN: -At this time patient DOES NOT meet criteria for inpatient psychiatric admission. -Patient DOES NOT have decision making capacity at this time and is unable to reason through and communicate/appreciate the risks, benefits and alternatives to treatment. -Delirium precautions recommended with patient including - avoiding use of narcotics and [employer] sedatives, limit anticholinergic medications when possible, frequent re-orientation, minimize use of restraints, open window shades during the day and close them at night -Would recommend the following medication changes/additions: Scheduled seroquel 25 mg qhs for sleep/mood stabilization/aggresion plus added 25 mg twice a day when necessary for agitation. depakote 250 mg bid for mood stabilization. haldol IM prn for severe agitation. -Communicated plan to patient's nurse -at this time psychiatry will sign off. -Please contact with any questions.
[2021-11-24 16:17] LABS: Glucose,Whole Blood 76 mg/dL (70-110)
[2021-11-24 20:44] LABS: Glucose,Whole Blood 130 mg/dL (70-110)
[2021-11-24] MEDS: ATORVASTATIN 40 MG TAB PO SCH (22:31)
[2021-11-24] MEDS: ANASTROZOLE 1 MG TAB PO SCH (22:32)
[2021-11-24] MEDS: QUEtiapine 25 MG TAB PO SCH (22:32)
[2021-11-25] MEDS: INSULIN DETEMIR (LEVEMIR) 100 UNIT/ML SYR SQ SCH ×2 (00:15→22:25)
[2021-11-25 07:14] LABS: Glucose,Whole Blood 134 mg/dL (70-110)
--- NOTE | 2021-11-25 10:07 | P.PN ---
Subjective Progress Note Date: 11/24/21 Patient was seen for a follow-up. Sitter was present. Patient currently asleep. Per sitter, patient has been asleep since she arrived at 7 AM. He was possibly awake at night. No seizures reported. No new concerns. Objective - Vital Signs Vital signs: Vital Signs Temp 98.1 F 11/24/21 02:00 Pulse 84 11/24/21 02:00 Resp 16 11/24/21 02:00 BP 156/81 11/24/21 02:00 Pulse Ox 94 L 11/24/21 02:00 FiO2 Intake & Output 11/23/21 11/24/21 11/24/21 18:59 06:59 18:59 Output Total 400 Balance -400 Weight 105.233 kg Output: Urine 400 Other: Voiding Method Urinal # Voids 1 2 1 # Bowel Movements 1 - Exam Patient is groggy, does wake up. He states is the month of May and the year is 2021. When I said it was not May, patient states it is December. He knows that he is in [place], but could not tell the city. Patient did not cooperate with the examination. Reflexes are diminished and plantars downgoing. - Labs CBC & Chem 7: 11/22/21 20:58 11/23/21 05:39 Labs: Abnormal Lab Results - Last 24 Hours (Table) 11/23/21 11/23/21 11/24/21 Range/Units 14:57 21:24 07:01 POC Glucose (mg/dL) 161 H 313 H 205 H (70-110) mg/dL 11/24/21 Range/Units 11:00 POC Glucose (mg/dL) 179 H (70-110) mg/dL Assessment and Plan Assessment: * Altered mental status, probable due to dementia with behavioral disturbance. * Staring spells, possible due to behavioral related spells. Doubt TIAs. EEG negative. * Diabetes, poorly controlled. Plan: * Continue Aricept 10 mg daily. We will also start Namenda 5 mg twice a day. After one week, the dose can be escalated gradually to 10 mg twice a day. * Psychiatry input appreciated. Patient started on Haldol 2 mg IM every 6 hours when necessary agitation/psychosis. Also started on Seroquel 25 mg at bedtime and Depakote 250 mg twice a day. * EEG was abnormal due to background slowing of moderate degree. This is s uggestive of generalized cerebral dysfunction as can be seen with toxic metabolic encephalopathy or due to diffuse structural brain abnormality. Clinical correlation recommended. No epileptiform activity was seen. * MRI brain pending. * B12 453, TSH is normal 1.080. * Hemoglobin A1c 8.9. Recommend optimize control of diabetes. * Patient currently not on any antiplatelet medication. He does have vascular risk factors. Start aspirin 81 mg daily. * DVT prophylaxis: Patient on Lovenox 40 mg subcu daily.
[2021-11-25] MEDS: INSULIN ASPART (NovoLOG) 100 UNIT/ML VIAL SQ SCH ×3 (10:52→17:11)
[2021-11-25] MEDS: ASPIRIN 81 MG PO SCH (10:53)
[2021-11-25] MEDS: TAMSULOSIN 0.4 MG CAP.ER.24H PO SCH (10:53)
[2021-11-25] MEDS: DONEPEZIL 10 MG TAB PO SCH (10:53)
[2021-11-25] MEDS: amLODIPine 10 MG TAB PO SCH (10:53)
[2021-11-25] MEDS: DIVALPROEX ER 250 MG TAB.ER.24H PO SCH ×2 (10:54→23:09)
[2021-11-25] MEDS: ENOXAPARIN 40 MG/0.4 ML SYRINGE SQ SCH (10:54)
[2021-11-25] MEDS: hydroCHLOROthiazide 25 MG TAB PO SCH (10:54)
[2021-11-25] MEDS: MEMANTINE 5 MG TAB PO SCH ×2 (10:54→22:24)
[2021-11-25] MEDS: FAMOTIDINE 20 MG TAB PO SCH ×2 (10:54→22:24)
[2021-11-25] MEDS: LOSARTAN 25 MG TAB PO SCH ×2 (10:55→22:24)
[2021-11-25] MEDS: CHOLECALCIFEROL 25 MCG (1000 IU) TABLET PO SCH (10:55)
[2021-11-25 11:53] LABS: Glucose,Whole Blood 178 mg/dL (70-110)
--- NOTE | 2021-11-25 13:32 | MR ---
EXAMINATION TYPE: MR brain wo con DATE OF EXAM: 11/25/2021 COMPARISON: CT brain 11/22/2021 HISTORY: AMS, R/O CVA CONTRAST: Performed utilizing 0 mL intravenous Gadavist gadolinium contrast. TECHNIQUE: Multiplanar, multiecho imaging on a 3.0 Keiry magnet is performed through the brain. Stud y is performed within 24 hours of arrival to the hospital. The craniovertebral junction is normal. The pituitary is normal. Diffusion-weighted imaging is performed. No abnormal hyperintensity is present to suggest an acute i ntracranial infarct or acute ischemic change. There are scattered patchy areas of hyperintensity on T2 and Inversion Recovery weighted sequences wh ich are non-specific but can be related to microvascular ischemic changes. Ventricles and sulci are prominent for the patient age. IMPRESSIONS: 1. Chronic appearing periventricular white matter ischemic type changes with age-related atrophy. 2. No acute intracranial process.
--- NOTE | 2021-11-25 14:48 | P.PN ---
Subjective Progress Note Date: 11/25/21 Hospital course: Patient is a 76-year-old male with a past medical history of dementia, hypertension, and diabetes mellitus. Patient presented to our facility 11/22/21 with a chief complaint of worsening mentation and recurrent falls at home. Per documentation patient's mental status has been significantly deteriorating rapidly and his is no longer able to care for him in their home. CT head negative for acute intercranial process. CBC, coags, and CMP showing no significant abnormalities. Urinalysis negative for infection and urine drug screen negative. EKG revealed sinus rhythm at 75 bpm with n occasional PVC and no significant T-wave or ST abnormalities showing no signs of acute ischemia. Progress Note Update: Pt doing well today, has significantly improved after initiation of mood stabilizers and delirium precautions. Placement pending. Physical exam: Gen: awake, alert HEENT: normocephalic, atraumatic, good hearing acuity, moist mucous membranes Resp: good air exchange, breathing comfortably with no accessory muscle use CVS: good distal perfusion x 4, GI: soft, NTTP, ND : no SPT, no CVAT, herrera catheter not present MSK: no pitting edema, no clubbing Neuro: non-focal, moving all extremities Psych: cooperative, euthymic mood Assessment and Plan of Care: Dementia with aggressive behaviors/behavioral disturbances Recurrent falls -CT head negative for acute intercranial process revealing nonspecific white matter changes likely secondary to chronic small vessel ischemic disease. -Psychiatry following, appreciate further recommendations -Neurology following, appreciate further recommendations -Case management consulted for assistance with placement. -TSH with free T4 to be completed. -MRI pending -EEG shows clinical background slowing, but no epileptiform activity -Psychiatry starting patient on Seroquel 25 mg nightly and Depakote 250 mg twice daily for mood stabilization. -Fall precautions and neuro checks to remain in place. Hypertension -Monitor vital signs and continue daily medication regimen with losartan, amlodipine and hydrochlorothiazide. Diabetes mellitus -Glycemic protocol with long-acting Levemir 40 units nightly and scheduled NovoLog with meals. CODE STATUS: Full code DVT prophylaxis: Lovenox Anticipated discharge date: Clinical course to determine Anticipated discharge place: Home versus SNF Objective - Vital Signs Vital signs: Vital Signs Temp 97.5 F L 11/25/21 07:36 Pulse 66 11/25/21 08:00 Resp 14 11/25/21 08:00 BP 105/63 11/25/21 07:36 Pulse Ox 91 L 11/25/21 07:36 FiO2 Intake & Output 11/24/21 11/25/21 11/25/21 18:59 06:59 18:59 Output Total 400 Balance -400 Output: Urine 400 Other: Voiding Method Urinal Bedside Commode Bedside Commode # Voids 1 1 1 # Bowel Movements 1 2 - Labs CBC & Chem 7: 11/22/21 20:58 11/23/21 05:39 Labs: Abnormal Lab Results - Last 24 Hours (Table) 11/24/21 11/25/21 11/25/21 Range/Units 20:44 07:13 11:51 POC Glucose (mg/dL) 130 H 134 H 178 H (70-110) mg/dL
[2021-11-25 16:58] LABS: Glucose,Whole Blood 436 mg/dL (70-110)
[2021-11-25 17:17] LABS: Glucose,Whole Blood 317 mg/dL (70-110)
[2021-11-25 20:36] LABS: Glucose,Whole Blood 334 mg/dL (70-110)
[2021-11-25] MEDS: ATORVASTATIN 40 MG TAB PO SCH (22:24)
[2021-11-25] MEDS: QUEtiapine 25 MG TAB PO SCH (23:09)
[2021-11-26 06:50] LABS: Glucose,Whole Blood 153 mg/dL (70-110)
--- NOTE | 2021-11-26 09:27 | P.PN ---
Subjective Progress Note Date: 11/25/21 Patient was seen for a follow-up. Patient is sitting in the recliner. Patient is much more alert and awake and cognitively improved. Delirium has improved. Offers no complaints. States does not remember what happened in the last couple days. Objective - Vital Signs Vital signs: Vital Signs Temp 97.6 F 11/26/21 02:00 Pulse 66 11/26/21 02:00 Resp 18 11/26/21 02:00 BP 105/56 11/26/21 02:00 Pulse Ox 96 11/26/21 02:00 FiO2 Intake & Output 11/25/21 11/26/21 11/26/21 18:59 06:59 18:59 Intake Total 400 Output Total 400 Balance 0 Intake: Oral 400 Output: Urine 400 Other: Voiding Method Bedside Commode # Voids 1 2 # Bowel Movements 1 1 - Exam Patient is fully alert and awake. Patient knows he is in [facility]. He knows his date of . He states he is either 56 or 57 years old. He knows it is 2021 and thinks the month is September. He knows name of the current president. Patient's cranial nerves appears normal. Slightly decreased hearing. Muscle strength is normal. No ataxia. Sensations equal. - Labs CBC & Chem 7: 11/22/21 20:58 11/23/21 05:39 Labs: Abnormal Lab Results - Last 24 Hours (Table) 11/25/21 11/25/21 11/25/21 Range/Units 11:51 16:57 17:10 POC Glucose (mg/dL) 178 H 436 H 317 H (70-110) mg/dL 11/25/21 11/26/21 Range/Units 20:35 06:48 POC Glucose (mg/dL) 334 H 153 H (70-110) mg/dL Assessment and Plan Assessment: * Altered mental status, probable due to acute delirium, much improved. * Dementia with behavioral disturbance. * Staring spells, possible due to behavioral related spells. Doubt TIAs. EEG negative. * Diabetes, poorly controlled. Plan: * Continue Aricept 10 mg daily. Continue Namenda 5 mg twice a day. After one week, the dose can be escalated gradually to 10 mg twice a day. * Psychiatry input appreciated. Patient started on Haldol 2 mg IM every 6 hours when necessary agitation/psychosis. Also started on Seroquel 25 mg at bedtime and Depakote 250 mg twice a day. * EEG was abnormal due to background slowing of moderate degree. This is suggestive of generalized cerebral dysfunction as can be seen with toxic metabolic encephalopathy or due to diffuse structural brain abnormality. Clinical correlation recommended. No epileptiform activity was seen. * MRI brain revealed chronic appearing periventricular white matter ischemic type changes with age-related atrophy. No acute intracranial process. I personally reviewed MRI, agree with the findings. * B12 453, TSH is normal 1.080. * Hemoglobin A1c 8.9. Recommend optimize control of diabetes to target A1c <7.0. * Patient currently not on any antiplatelet medication. He does have vascular risk factors. Start aspirin 81 mg daily. * DVT prophylaxis: Patient on Lovenox 40 mg subcu daily. * Neurologically clear for discharge.
[2021-11-26] MEDS: TAMSULOSIN 0.4 MG CAP.ER.24H PO SCH (10:38)
[2021-11-26] MEDS: DIVALPROEX ER 250 MG TAB.ER.24H PO SCH ×2 (10:38→20:57)
[2021-11-26] MEDS: DONEPEZIL 10 MG TAB PO SCH (10:39)
[2021-11-26] MEDS: CHOLECALCIFEROL 25 MCG (1000 IU) TABLET PO SCH (10:39)
[2021-11-26] MEDS: hydroCHLOROthiazide 25 MG TAB PO SCH (10:39)
[2021-11-26] MEDS: FAMOTIDINE 20 MG TAB PO SCH ×2 (10:39→20:58)
[2021-11-26] MEDS: LOSARTAN 25 MG TAB PO SCH ×2 (10:39→20:57)
[2021-11-26] MEDS: MEMANTINE 5 MG TAB PO SCH ×2 (10:39→20:57)
[2021-11-26] MEDS: ASPIRIN 81 MG PO SCH (10:39)
[2021-11-26] MEDS: amLODIPine 10 MG TAB PO SCH (10:40)
[2021-11-26] MEDS: ENOXAPARIN 40 MG/0.4 ML SYRINGE SQ SCH (10:40)
[2021-11-26] MEDS: INSULIN ASPART (NovoLOG) 100 UNIT/ML VIAL SQ SCH ×3 (10:43→17:00)
--- NOTE | 2021-11-26 11:21 | P.PN ---
Subjective Progress Note Date: 11/26/21 Hospital course: Patient is a 76-year-old male with a past medical history of dementia, hypertension, and diabetes mellitus. Patient presented to our facility 11/22/21 with a chief complaint of worsening mentation and recurrent falls at home. Per documentation patient's mental status has been significantly deteriorating rapidly and his is no longer able to care for him in their home. CT head negative for acute intercranial process. CBC, coags, and CMP showing no significant abnormalities. Urinalysis negative for infection and urine drug screen negative. EKG revealed sinus rhythm at 75 bpm with n occasional PVC and no significant T-wave or ST abnormalities showing no signs of acute ischemia. Progress Note Update: Pt doing well today, has significantly improved after initiation of mood stabilizers and delirium precautions. Placement pending. Physical exam: Gen: awake, alert HEENT: normocephalic, atraumatic, good hearing acuity, moist mucous membranes Resp: good air exchange, breathing comfortably with no accessory muscle use CVS: good distal perfusion x 4, GI: soft, NTTP, ND : no SPT, no CVAT, herrera catheter not present MSK: no pitting edema, no clubbing Neuro: non-focal, moving all extremities Psych: cooperative, euthymic mood Assessment and Plan of Care: Dementia with aggressive behaviors/behavioral disturbances Recurrent falls -CT head negative for acute intercranial process revealing nonspecific white matter changes likely secondary to chronic small vessel ischemic disease. -Psychiatry following, appreciate further recommendations -Neurology following, appreciate further recommendations -Case management consulted for assistance with placement. -TSH with free T4 to be completed. -MRI pending -EEG shows clinical background slowing, but no epileptiform activity -Psychiatry starting patient on Seroquel 25 mg nightly and Depakote 250 mg twice daily for mood stabilization. -Fall precautions and neuro checks to remain in place. Hypertension -Monitor vital signs and continue daily medication regimen with losartan, amlodipine and hydrochlorothiazide. Diabetes mellitus -Glycemic protocol with long-acting Levemir 40 units nightly and scheduled NovoLog with meals. CODE STATUS: Full code DVT prophylaxis: Lovenox Anticipated discharge date: Clinical course to determine Anticipated discharge place: Home versus SNF Objective - Vital Signs Vital signs: Vital Signs Temp 97.6 F 11/26/21 02:00 Pulse 66 11/26/21 02:00 Resp 18 11/26/21 02:00 BP 105/56 11/26/21 02:00 Pulse Ox 96 11/26/21 02:00 FiO2 Intake & Output 11/25/21 11/26/21 11/26/21 18:59 06:59 18:59 Intake Total 400 Output Total 400 Balance 0 Intake: Oral 400 Output: Urine 400 Other: Voiding Method Bedside Commode # Voids 1 2 # Bowel Movements 1 1 - Labs CBC & Chem 7: 11/22/21 20:58 11/23/21 05:39 Labs: Abnormal Lab Results - Last 24 Hours (Table) 11/25/21 11/25/21 11/25/21 Range/Units 11:51 16:57 17:10 POC Glucose (mg/dL) 178 H 436 H 317 H (70-110) mg/dL 11/25/21 11/26/21 Range/Units 20:35 06:48 POC Glucose (mg/dL) 334 H 153 H (70-110) mg/dL
[2021-11-26 11:45] LABS: Glucose,Whole Blood 151 mg/dL (70-110)
[2021-11-26 16:52] LABS: Glucose,Whole Blood 212 mg/dL (70-110)
[2021-11-26 20:35] LABS: Glucose,Whole Blood 192 mg/dL (70-110)
[2021-11-26] MEDS: QUEtiapine 25 MG TAB PO SCH (20:57)
[2021-11-26] MEDS: ATORVASTATIN 40 MG TAB PO SCH (20:57)
[2021-11-26] MEDS: INSULIN DETEMIR (LEVEMIR) 100 UNIT/ML SYR SQ SCH (20:58)
--- NOTE | 2021-11-26 23:30 | P.PN ---
Subjective Progress Note Date: 11/26/21 Patient was seen for a follow-up. Patient is sitting in the recliner. Patient is much more alert and awake and cognitively improved. Delirium has improved. Offers no complaints. Denies any headache or dizziness. Objective - Vital Signs Vital signs: Vital Signs Temp 98.3 F 11/26/21 18:38 Pulse 75 11/26/21 18:38 Resp 16 11/26/21 18:38 BP 127/67 11/26/21 18:38 Pulse Ox 97 11/26/21 18:38 FiO2 Intake & Output 11/26/21 11/26/21 11/27/21 06:59 18:59 06:59 Other: Voiding Method Bedside Commode # Voids 2 7 # Bowel Movements 1 - Exam Patient is fully alert and awake. Patient is sitting in the recliner. Patient knows he is in [facility]. He knows his date of . He knows it is October 2021 and name of the current president. Patient's cranial nerves appears normal. Slightly decreased hearing. Muscle strength is normal. No ataxia. Sensations equal. - Labs CBC & Chem 7: 11/22/21 20:58 11/23/21 05:39 Labs: Abnormal Lab Results - Last 24 Hours (Table) 11/26/21 11/26/21 11/26/21 Range/Units 06:48 11:43 16:51 POC Glucose (mg/dL) 153 H 151 H 212 H (70-110) mg/dL 11/26/21 Range/Units 20:32 POC Glucose (mg/dL) 192 H (70-110) mg/dL Assessment and Plan Assessment: * Altered mental status, probable due to acute delirium, probably resolved. * Dementia with behavioral disturbance. * Staring spells, possible due to behavioral related spells. Doubt TIAs. EEG negative. * Diabetes, poorly controlled. Plan: * Continue Aricept 10 mg daily. Continue Namenda 5 mg twice a day. After one week, the dose can be escalated gradually to 10 mg twice a day. * Psychiatry input appreciated. Patient started on Haldol 2 mg IM every 6 hours when necessary agitation/psychosis. Also started on Seroquel 25 mg at bedtime and Depakote 250 mg twice a day. * EEG was abnormal due to background slowing of moderate degree. This is suggestive of generalized cerebral dysfunction as can be seen with toxic metabolic encephalopathy or due to diffuse structural brain abnormality. Clinical correlation recommended. No epileptiform activity was seen. * MRI brain revealed chronic appearing periventricular white matter ischemic type changes with age-related atrophy. No acute intracranial process. I personally reviewed MRI, agree with the findings. * B12 453, TSH is normal 1.080. * Hemoglobin A1c 8.9. Recommend optimize control of diabetes to target A1c <7.0. * Patient's mentions that he was taking aspirin 81 mg daily at home. Somehow it was not mentioned in the home medication list. We will continue aspirin 81 mg daily. * DVT prophylaxis: Patient on Lovenox 40 mg subcu daily. * Neurologically clear for discharge. Discussed with patient's as well.
[2021-11-27] MEDS: ANASTROZOLE 1 MG TAB PO SCH (01:11)
[2021-11-27] MEDS: INSULIN ASPART (NovoLOG) 100 UNIT/ML VIAL SQ SCH ×3 (08:05→17:37)
[2021-11-27] MEDS: TAMSULOSIN 0.4 MG CAP.ER.24H PO SCH (08:06)
[2021-11-27] MEDS: MEMANTINE 5 MG TAB PO SCH ×2 (08:06→21:59)
[2021-11-27] MEDS: LOSARTAN 25 MG TAB PO SCH ×2 (08:06→21:59)
[2021-11-27] MEDS: amLODIPine 10 MG TAB PO SCH (08:06)
[2021-11-27] MEDS: hydroCHLOROthiazide 25 MG TAB PO SCH (08:06)
[2021-11-27] MEDS: ASPIRIN 81 MG PO SCH (08:06)
[2021-11-27] MEDS: CHOLECALCIFEROL 25 MCG (1000 IU) TABLET PO SCH (08:06)
[2021-11-27] MEDS: FAMOTIDINE 20 MG TAB PO SCH ×2 (08:06→21:59)
[2021-11-27] MEDS: DONEPEZIL 10 MG TAB PO SCH (08:06)
[2021-11-27] MEDS: DIVALPROEX ER 250 MG TAB.ER.24H PO SCH ×2 (08:06→21:59)
[2021-11-27] MEDS: ENOXAPARIN 40 MG/0.4 ML SYRINGE SQ SCH (08:07)
--- NOTE | 2021-11-27 11:23 | P.PN ---
Subjective Progress Note Date: 11/27/21 Hospital course: Patient is a 76-year-old male with a past medical history of dementia, hypertension, and diabetes mellitus. Patient presented to our facility 11/22/21 with a chief complaint of worsening mentation and recurrent falls at home. Per documentation patient's mental status has been significantly deteriorating rapidly and his is no longer able to care for him in their home. CT head negative for acute intercranial process. CBC, coags, and CMP showing no significant abnormalities. Urinalysis negative for infection and urine drug screen negative. EKG revealed sinus rhythm at 75 bpm with n occasional PVC and no significant T-wave or ST abnormalities showing no signs of acute ischemia. Progress Note Update: Pt doing well today, has significantly improved after initiation of mood stabilizers and delirium precautions. Sitting in chair and cooperative with care team, [facility] demeanor. Placement pending. Physical exam: Gen: awake, alert HEENT: normocephalic, atraumatic, good hearing acuity, moist mucous membranes Resp: good air exchange, breathing comfortably with no accessory muscle use CVS: good distal perfusion x 4, GI: soft, NTTP, ND : no SPT, no CVAT, herrera catheter not present MSK: no pitting edema, no clubbing Neuro: non-focal, moving all extremities Psych: cooperative, euthymic mood Assessment and Plan of Care: Dementia with aggressive behaviors/behavioral disturbances Recurrent falls -CT head negative for acute intercranial process revealing nonspecific white matter changes likely secondary to chronic small vessel ischemic disease. -Psychiatry following, appreciate further recommendations -Neurology following, appreciate further recommendations -Case management consulted for assistance with placement. -TSH with free T4 to be completed. -MRI pending -EEG shows clinical background slowing, but no epileptiform activity -Psychiatry starting patient on Seroquel 25 mg nightly and Depakote 250 mg twice daily for mood stabilization. -Fall precautions and neuro checks to remain in place. Hypertension -Monitor vital signs and continue daily medication regimen with losartan, amlodipine and hydrochlorothiazide. Diabetes mellitus -Glycemic protocol with long-acting Levemir 40 units nightly and scheduled NovoLog with meals. CODE STATUS: Full code DVT prophylaxis: Lovenox Anticipated discharge date: Clinical course to determine Anticipated discharge place: Home versus SNF Objective - Vital Signs Vital signs: Vital Signs Temp 98.0 F 11/27/21 07:45 Pulse 56 L 11/27/21 07:45 Resp 17 11/27/21 07:45 BP 116/73 11/27/21 07:45 Pulse Ox 96 11/27/21 07:45 FiO2 Intake & Output 11/26/21 11/27/21 11/27/21 18:59 06:59 18:59 Other: Voiding Method Bedside Commode Toilet # Voids 7 1 - Labs CBC & Chem 7: 11/22/21 20:58 11/23/21 05:39 Labs: Abnormal Lab Results - Last 24 Hours (Table) 11/26/21 11/26/21 11/26/21 Range/Units 11:43 16:51 20:32 POC Glucose (mg/dL) 151 H 212 H 192 H (70-110) mg/dL
[2021-11-27 11:29] LABS: Glucose,Whole Blood 174 mg/dL (70-110)
[2021-11-27 16:46] LABS: Glucose,Whole Blood 135 mg/dL (70-110)
[2021-11-27 20:17] LABS: Glucose,Whole Blood 143 mg/dL (70-110)
[2021-11-27] MEDS: ATORVASTATIN 40 MG TAB PO SCH (21:59)
[2021-11-27] MEDS: QUEtiapine 25 MG TAB PO SCH (21:59)
[2021-11-27] MEDS: INSULIN DETEMIR (LEVEMIR) 100 UNIT/ML SYR SQ SCH (22:00)
[2021-11-28 06:52] LABS: Glucose,Whole Blood 74 mg/dL (70-110)
[2021-11-28] MEDS: MEMANTINE 5 MG TAB PO SCH ×2 (07:33→20:23)
[2021-11-28] MEDS: LOSARTAN 25 MG TAB PO SCH ×2 (07:33→20:24)
[2021-11-28] MEDS: DIVALPROEX ER 250 MG TAB.ER.24H PO SCH ×2 (07:33→20:24)
[2021-11-28] MEDS: amLODIPine 10 MG TAB PO SCH (07:36)
[2021-11-28] MEDS: ENOXAPARIN 40 MG/0.4 ML SYRINGE SQ SCH (07:36)
[2021-11-28] MEDS: ASPIRIN 81 MG PO SCH (07:36)
[2021-11-28] MEDS: hydroCHLOROthiazide 25 MG TAB PO SCH (07:36)
[2021-11-28] MEDS: FAMOTIDINE 20 MG TAB PO SCH ×2 (07:36→20:24)
[2021-11-28] MEDS: TAMSULOSIN 0.4 MG CAP.ER.24H PO SCH (07:36)
[2021-11-28] MEDS: DONEPEZIL 10 MG TAB PO SCH (07:37)
[2021-11-28] MEDS: CHOLECALCIFEROL 25 MCG (1000 IU) TABLET PO SCH (07:37)
[2021-11-28] MEDS: INSULIN ASPART (NovoLOG) 100 UNIT/ML VIAL SQ SCH ×3 (07:51→16:55)
[2021-11-28 11:32] LABS: Glucose,Whole Blood 110 mg/dL (70-110)
--- NOTE | 2021-11-28 12:34 | P.PN ---
Subjective Progress Note Date: 11/28/21 Hospital course: Patient is a 76-year-old male with a past medical history of dementia, hypertension, and diabetes mellitus. Patient presented to our facility 11/22/21 with a chief complaint of worsening mentation and recurrent falls at home. Per documentation patient's mental status has been significantly deteriorating rapidly and his is no longer able to care for him in their home. CT head negative for acute intercranial process. CBC, coags, and CMP showing no significant abnormalities. Urinalysis negative for infection and urine drug screen negative. EKG revealed sinus rhythm at 75 bpm with n occasional PVC and no significant T-wave or ST abnormalities showing no signs of acute ischemia. Progress Note Update: Pt doing well again today. Remains with dementia - believes he's in the rehab unit already. Very conversant and pleasant today. Placement pending. Physical exam: Gen: awake, alert HEENT: normocephalic, atraumatic, good hearing acuity, moist mucous membranes Resp: good air exchange, breathing comfortably with no accessory muscle use CVS: good distal perfusion x 4, GI: soft, NTTP, ND : no SPT, no CVAT, herrera catheter not present MSK: no pitting edema, no clubbing Neuro: non-focal, moving all extremities Psych: cooperative, euthymic mood Assessment and Plan of Care: Dementia with aggressive behaviors/behavioral disturbances Recurrent falls -CT head negative for acute intercranial process revealing nonspecific white matter changes likely secondary to chronic small vessel ischemic disease. -Psychiatry following, appreciate further recommendations -Neurology following, appreciate further recommendations -Case management consulted for assistance with placement. -TSH with free T4 to be completed. -MRI pending -EEG shows clinical background slowing, but no epileptiform activity -Psychiatry starting patient on Seroquel 25 mg nightly and Depakote 250 mg twice daily for mood stabilization. -Fall precautions and neuro checks to remain in place. Hypertension -Monitor vital signs and continue daily medication regimen with losartan, amlodipine and hydrochlorothiazide. Diabetes mellitus -Glycemic protocol with long-acting Levemir 40 units nightly and scheduled NovoLog with meals. CODE STATUS: Full code DVT prophylaxis: Lovenox Anticipated discharge date: Clinical course to determine Anticipated discharge place: Home versus SNF Objective - Vital Signs Vital signs: Vital Signs Temp 97.9 F 11/28/21 08:06 Pulse 51 L 11/28/21 08:06 Resp 15 11/28/21 08:06 BP 122/74 11/28/21 08:06 Pulse Ox 97 11/28/21 08:06 FiO2 Intake & Output 11/27/21 11/28/21 11/28/21 18:59 06:59 18:59 Intake Total 500 Output Total 500 Balance 0 Intake: Oral 500 Output: Urine 500 Other: Voiding Method Toilet Toilet # Voids 5 - Labs CBC & Chem 7: 11/22/21 20:58 11/23/21 05:39 Labs: Abnormal Lab Results - Last 24 Hours (Table) 11/27/21 11/27/21 Range/Units 16:45 20:14 POC Glucose (mg/dL) 135 H 143 H (70-110) mg/dL
[2021-11-28 13:52] VITALS: BMI 31.4
[2021-11-28 16:49] LABS: Glucose,Whole Blood 182 mg/dL (70-110)
[2021-11-28] MEDS: ATORVASTATIN 40 MG TAB PO SCH (20:23)
[2021-11-28] MEDS: ANASTROZOLE 1 MG TAB PO SCH (20:23)
[2021-11-28] MEDS: INSULIN DETEMIR (LEVEMIR) 100 UNIT/ML SYR SQ SCH (20:24)
[2021-11-28] MEDS: QUEtiapine 25 MG TAB PO SCH (20:24)
[2021-11-28 20:31] LABS: Glucose,Whole Blood 124 mg/dL (70-110)
[2021-11-29 06:47] LABS: Glucose,Whole Blood 151 mg/dL (70-110)
[2021-11-29 07:09] LABS: Glucose,Whole Blood 113 mg/dL (70-110)
[2021-11-29] MEDS: CHOLECALCIFEROL 25 MCG (1000 IU) TABLET PO SCH (08:19)
[2021-11-29] MEDS: FAMOTIDINE 20 MG TAB PO SCH ×2 (08:19→21:36)
[2021-11-29] MEDS: DONEPEZIL 10 MG TAB PO SCH (08:19)
[2021-11-29] MEDS: ASPIRIN 81 MG PO SCH (08:19)
[2021-11-29] MEDS: ENOXAPARIN 40 MG/0.4 ML SYRINGE SQ SCH (08:19)
[2021-11-29] MEDS: LOSARTAN 25 MG TAB PO SCH ×2 (08:19→21:36)
[2021-11-29] MEDS: amLODIPine 10 MG TAB PO SCH (08:20)
[2021-11-29] MEDS: INSULIN ASPART (NovoLOG) 100 UNIT/ML VIAL SQ SCH ×3 (08:20→18:02)
[2021-11-29] MEDS: TAMSULOSIN 0.4 MG CAP.ER.24H PO SCH (08:20)
[2021-11-29] MEDS: MEMANTINE 5 MG TAB PO SCH ×2 (08:20→21:35)
[2021-11-29] MEDS: hydroCHLOROthiazide 25 MG TAB PO SCH (08:20)
[2021-11-29] MEDS: DIVALPROEX ER 250 MG TAB.ER.24H PO SCH ×2 (08:23→21:35)
[2021-11-29 11:15] LABS: Glucose,Whole Blood 115 mg/dL (70-110)
--- NOTE | 2021-11-29 15:22 | P.PN ---
Subjective Progress Note Date: 11/29/21 Hospital course: Patient is a 76-year-old male with a past medical history of dementia, hypertension, and diabetes mellitus. Patient presented to our facility 11/22/21 with a chief complaint of worsening mentation and recurrent falls at home. Per documentation patient's mental status has been significantly deteriorating rapidly and his is no longer able to care for him in their home. CT head negative for acute intercranial process. CBC, coags, and CMP showing no significant abnormalities. Urinalysis negative for infection and urine drug screen negative. EKG revealed sinus rhythm at 75 bpm with n occasional PVC and no significant T-wave or ST abnormalities showing no signs of acute ischemia. Progress Note Update: Pt doing well again today. Very conversant and pleasant today. Placement pending. Physical exam: General: non toxic, no distress, appears at stated age Derm: warm, dry Head: atraumatic, normocephalic, symmetric Eyes: EOMI, no lid lag, anicteric sclera Mouth: no lip lesion, mucus membranes moist Cardiovascular: S1S2 reg, no murmur Lungs: CTA bilateral, no rhonchi, no rales , no accessory muscle use Abdominal: soft, nontender to palpation Ext: no gross muscle atrophy, no edema, no contractures Neuro: no focal neuro deficits Psych: Alert, oriented, appropriate affect Assessment and Plan of Care: Dementia with aggressive behaviors/behavioral disturbances Recurrent falls -CT head negative for acute intercranial process revealing nonspecific white mat ter changes likely secondary to chronic small vessel ischemic disease. -Psychiatry and Neurology on board -Case management consulted for assistance with placement. -TSH within normal limits -MRI shows no acute intracranial process -EEG shows clinical background slowing, but no epileptiform activity -Psychiatry starting patient on Seroquel 25 mg nightly and Depakote 250 mg twice daily for mood stabilization. -Fall precautions and neurochecks to remain in place. Hypertension -Monitor vital signs and continue daily medication regimen with losartan, amlodi pine and hydrochlorothiazide. Diabetes mellitus -Glycemic protocol with long-acting Levemir 40 units nightly and scheduled NovoLog with meals. CODE STATUS: Full code DVT prophylaxis: Lovenox Anticipated discharge date: Clinical course to determine Anticipated discharge place: Home versus SNF Objective - Vital Signs Vital signs: Vital Signs Temp 98.3 F 11/29/21 14:00 Pulse 77 11/29/21 14:00 Resp 16 11/29/21 14:00 BP 113/69 11/29/21 14:00 Pulse Ox 96 11/29/21 14:00 FiO2 Intake & Output 11/28/21 11/29/21 11/29/21 18:59 06:59 18:59 Intake Total 240 Output Total 450 Balance -210 Weight 105.233 kg Intake: Oral 240 Output: Urine 450 Other: Voiding Method Toilet Toilet # Voids 3 3 - Labs CBC & Chem 7: 11/22/21 20:58 11/23/21 05:39 Labs: Abnormal Lab Results - Last 24 Hours (Table) 11/27/21 11/28/21 11/28/21 Range/Units 07:08 16:48 20:30 POC Glucose (mg/dL) 151 H 182 H 124 H (70-110) mg/dL 11/29/21 11/29/21 Range/Units 07:07 11:14 POC Glucose (mg/dL) 113 H 115 H (70-110) mg/dL
[2021-11-29 16:28] LABS: Glucose,Whole Blood 135 mg/dL (70-110)
[2021-11-29 20:34] LABS: Glucose,Whole Blood 160 mg/dL (70-110)
[2021-11-29] MEDS: QUEtiapine 25 MG TAB PO SCH (21:35)
[2021-11-29] MEDS: ATORVASTATIN 40 MG TAB PO SCH (21:36)
[2021-11-29] MEDS: INSULIN DETEMIR (LEVEMIR) 100 UNIT/ML SYR SQ SCH (21:42)
--- NOTE | 2021-11-29 23:03 | P.PN ---
Subjective Progress Note Date: 11/27/21 Patient was seen for a follow-up. Patient is sitting in the recliner. Patient is much more alert and awake and cognitively improved. Delirium has improved. Offers no complaints. Denies any headache or dizziness. Objective - Vital Signs Vital signs: Vital Signs Temp 98.1 F 11/29/21 19:48 Pulse 76 11/29/21 22:20 Resp 16 11/29/21 22:20 BP 133/70 11/29/21 19:48 Pulse Ox 94 L 11/29/21 19:48 FiO2 Intake & Output 11/29/21 11/29/21 11/30/21 06:59 18:59 06:59 Intake Total 240 Output Total 450 Balance -210 Intake: Oral 240 Output: Urine 450 Other: Voiding Method Toilet Toilet # Voids 3 3 # Bowel Movements 1 - Exam Patient is fully alert and awake. Patient is sitting in the recliner. Patient knows he is in [facility]. He knows his date of . He knows it is October 2021 and name of the current president. Patient's cranial nerves appears normal. Visual tavares are full. Slightly decreased hearing. Muscle strength is normal. No ataxia. Sensations equal. - Labs CBC & Chem 7: 11/22/21 20:58 11/23/21 05:39 Labs: Abnormal Lab Results - Last 24 Hours (Table) 11/27/21 11/29/21 11/29/21 Range/Units 07:08 07:07 11:14 POC Glucose (mg/dL) 151 H 113 H 115 H (70-110) mg/dL 11/29/21 11/29/21 Range/Units 16:25 20:30 POC Glucose (mg/dL) 135 H 160 H (70-110) mg/dL Assessment and Plan Assessment: * Altered mental status, probable due to acute delirium, resolved. * Dementia with behavioral disturbance. * Staring spells, possible due to behavioral related spells. Doubt TIAs. EEG negative. * Diabetes, poorly controlled. Plan: * Continue Aricept 10 mg daily. Continue Namenda 5 mg twice a day. After one week, the dose can be escalated gradually to 10 mg twice a day. * Psychiatry input appreciated. Patient started on Haldol 2 mg IM every 6 hours when necessary agitation/psychosis. Also started on Seroquel 25 mg at bedtime and Depakote 250 mg twice a day. * EEG was abnormal due to background slowing of moderate degree. This is suggestive of generalized cerebral dysfunction as can be seen with toxic metabolic encephalopathy or due to diffuse structural brain abnormality. Clinical correlation recommended. No epileptiform activity was seen. * MRI brain revealed chronic appearing periventricular white matter ischemic type changes with age-related atrophy. No acute intracranial process. I personally reviewed MRI, agree with the findings. * B12 453, TSH is normal 1.080. * Hemoglobin A1c 8.9. Recommend optimize control of diabetes to target A1c <7.0. * Patient's mentions that he was taking aspirin 81 mg daily at home. Somehow it was not mentioned in the home medication list. We will continue aspirin 81 mg daily. * DVT prophylaxis: Patient on Lovenox 40 mg subcu daily. * Neurology will sign off. Please reconsult if any other concerns.
[2021-11-30 07:10] LABS: Glucose,Whole Blood 82 mg/dL (70-110)
[2021-11-30] MEDS: INSULIN ASPART (NovoLOG) 100 UNIT/ML VIAL SQ SCH ×3 (07:50→17:04)
[2021-11-30] MEDS: FAMOTIDINE 20 MG TAB PO SCH (07:57)
[2021-11-30] MEDS: CHOLECALCIFEROL 25 MCG (1000 IU) TABLET PO SCH (07:57)
[2021-11-30] MEDS: ENOXAPARIN 40 MG/0.4 ML SYRINGE SQ SCH (07:57)
[2021-11-30] MEDS: amLODIPine 10 MG TAB PO SCH (07:57)
[2021-11-30] MEDS: hydroCHLOROthiazide 25 MG TAB PO SCH (07:57)
[2021-11-30] MEDS: ASPIRIN 81 MG PO SCH (07:57)
[2021-11-30] MEDS: MEMANTINE 5 MG TAB PO SCH (07:57)
[2021-11-30] MEDS: DONEPEZIL 10 MG TAB PO SCH (07:57)
[2021-11-30] MEDS: DIVALPROEX ER 250 MG TAB.ER.24H PO SCH (07:58)
[2021-11-30] MEDS: LOSARTAN 25 MG TAB PO SCH (07:58)
[2021-11-30] MEDS: TAMSULOSIN 0.4 MG CAP.ER.24H PO SCH (07:58)
[2021-11-30 08:27] VITALS: RESP 18
[2021-11-30 11:21] LABS: Glucose,Whole Blood 206 mg/dL (70-110)
--- NOTE | 2021-11-30 13:28 | P.PN ---
Subjective Progress Note Date: 11/30/21 Hospital course: Patient is a 76-year-old male with a past medical history of dementia, hypertension, and diabetes mellitus. Patient presented to our facility 11/22/21 with a chief complaint of worsening mentation and recurrent falls at home. Per documentation patient's mental status has been significantly deteriorating rapidly and his is no longer able to care for him in their home. CT head negative for acute intercranial process. CBC, coags, and CMP showing no significant abnormalities. Urinalysis negative for infection and urine drug screen negative. EKG revealed sinus rhythm at 75 bpm with n occasional PVC and no significant T-wave or ST abnormalities showing no signs of acute ischemia. Progress Note Update: Pt doing well again today. Pleasantly confused. Placement pending. Physical exam: General: non toxic, no distress, appears at stated age Derm: warm, dry Head: atraumatic, normocephalic, symmetric Eyes: EOMI, no lid lag, anicteric sclera Mouth: no lip lesion, mucus membranes moist Cardiovascular: S1S2 reg, no murmur Lungs: CTA bilateral, no rhonchi, no rales , no accessory muscle use Abdominal: soft, nontender to palpation Ext: no gross muscle atrophy, no edema, no contractures Neuro: no focal neuro deficits Psych: Alert, oriented x 1-2. Pleasantly confused. Assessment and Plan of Care: Dementia with aggressive behaviors/behavioral disturbances Recurrent falls -CT head negative for acute intercranial process revealing nonspecific white matter changes likely secondary to chronic small vessel ischemic disease. -Psychiatry and Neurology on board -Case management consulted for assistance with placement. -TSH within normal limits -MRI shows no acute intracranial process -EEG shows clinical background slowing, but no epileptiform activity -Psychiatry starting patient on Seroquel 25 mg nightly and Depakote 250 mg twice daily for mood stabilization. -Fall precautions and neurochecks to remain in place. Hypertension -Monitor vital signs and continue daily medication regimen with losartan, amlodipine and hydrochlorothiazide. Diabetes mellitus -Glycemic protocol with long-acting Levemir 40 units nightly and scheduled NovoLog with meals. Case discussed with case management. is power of installation service representative. She is unable to provide the care that he needs at home. PT and OT on board. Case management to follow up with possible rehab options. Medically stable. CODE STATUS: Full code DVT prophylaxis: Lovenox Anticipated discharge date: Clinical course to determine Anticipated discharge place: Home versus SNF Objective - Vital Signs Vital signs: Vital Signs Temp 97.7 F 11/30/21 08:00 Pulse 55 L 11/30/21 08:00 Resp 18 11/30/21 08:00 BP 117/50 11/30/21 08:00 Pulse Ox 91 L 11/30/21 08:00 FiO2 Intake & Output 11/29/21 11/30/21 11/30/21 18:59 06:59 18:59 Other: Voiding Method Toilet Toilet Toilet # Voids 3 1 # Bowel Movements 1 - Labs CBC & Chem 7: 11/22/21 20:58 11/23/21 05:39 Labs: Abnormal Lab Results - Last 24 Hours (Table) 11/29/21 11/29/21 11/30/21 Range/Units 16:25 20:30 11:20 POC Glucose (mg/dL) 135 H 160 H 206 H (70-110) mg/dL
[2021-11-30 14:52] VITALS: BP 96/46; PULSE 67; TEMP 97.9
--- NOTE | 2021-11-30 16:17 | P.DS ---
Providers Date of admission: 11/22/21 23:17 Expected date of discharge: 11/30/21 Attending physician: Haven Roldan MD Consults: 11/22/21 23:17 Consult Physician Routine Consulting Provider: Jovana Garcia Consult Reason/Comments: confusion Do you want consulting provider notified?: Yes 11/23/21 12:21 Consult Physician Routine Consulting Provider: Randall Delcid Consult Reason/Comments: Dementia with behavioral disturbance, agitation Do you want consulting provider notified?: Yes Primary care physician: [facility] Course: 76 year old male with DM , Hypertension , Dementia patient brought in by his , for evaluation after sustaining a fall at home. patient seems to be alert and awake, is not at bed side at this time. patient reports that he has been falling frequently recently due to missing a step , or tripping over something, and sometimes he just feels his legs giving out for no reason. he denies any associated symptoms of dizziness, chest pain , SOB, or palpitations, he denies any focal neuro deficits, and denies any loss of consciousness. however this time he has hit his head, he denies any headache, denies being on any blood thinners. he claims to feeling perfectly fine at time of my evaluation. the reported to the ED, that it is getting extremly hard for her to take care of her . she claims that his dementia and mental status over all has been deteriorating pretty fast recently . she reports that it took her over 1.5 hrs to get him to get dressed and go to the doctor for evaluation today. there is no report of any fever, chills, urinary changes, GI bleeding, abd pain , chest pain , diarrhea, headache, or any other focal neuro deficits. workup in the ED was pretty much benign Brain CT no acute pathology patient denies smoking , illicit drugs and alcohol Neurology was consulted and attribute it to his altered mentation to dementia with behavioral disturbances. He was continued on Aricept 10 mg by mouth daily. Namenda 5 mg by mouth twice a day was added. EEG showed no seizure-like activity. MRI brain was negative for acute findings. Psychiatry was consulted and recommended Depakote 250 mg by mouth twice a day for mood stabilization and Seroquel 25 mg by mouth at bedtime for sleep/mood stabilization/aggression. Initially, case management attempted to place the patient at SNF for rehab as family preference. Patient was rejected for multiple SNFs. Patient was deemed stable for discharge home. His was willing to accept the patient. Patient was discharged on 11/30/2021. Please refer to the progress note for physical exam. Discharge diagnosis: Dementia with aggressive behaviors/behavioral disturbances Recurrent falls Hypertension Diabetes mellitus This complex discharge took over 45 minutes to complete. Pertinent Studies: Brain CT EEG Brain MRI Patient Condition at Discharge: Stable Plan - Discharge Summary Discharge Rx Participant: No New Discharge Prescriptions: New Divalproex ER [Depakote ER] 250 mg PO BID #60 tab Memantine [Namenda] 5 mg PO BID #60 tab Cholecalciferol [Vitamin D3 (25 Mcg = 1000 Iu)] 25 mcg PO DAILY #30 tab Aspirin 81 mg PO DAILY #30 tab QUEtiapine [SEROquel] 25 mg PO HS #30 tab Continue Tamsulosin HCl [Flomax] 0.4 mg PO DAILY Meclizine HCl 25 mg PO TID PRN PRN Reason: DIZZINESS Insulin Aspart [NovoLOG Flexpen] 22 units SQ AC-BRKFST Canagliflozin/Metformin HCl [Invokamet 150-1,000 mg Tablet] 1 tab PO BID Donepezil HCl [Aricept] 10 mg PO DAILY amLODIPine [Norvasc] 10 mg PO DAILY Insulin Glargine,Hum.rec.anlog [Tougideono Solostar] 40 units SQ HS Insulin Aspart [NovoLOG Flexpen] 16 units SQ AC-BID@1200,1700 Losartan [Cozaar] 25 mg PO BID hydroCHLOROthiazide 25 mg PO DAILY Famotidine [Pepcid] 40 mg PO BID Atorvastatin [Lipitor] 40 mg PO HS Anastrozole 1 mg PO Q48H Discharge Medication List Anastrozole 1 mg PO Q48H 11/22/21 [History] Atorvastatin [Lipitor] 40 mg PO HS 11/22/21 [History] Canagliflozin/Metformin HCl [Invokamet 150-1,000 mg Tablet] 1 tab PO BID 11/22/21 [History] Donepezil HCl [Aricept] 10 mg PO DAILY 11/22/21 [History] Famotidine [Pepcid] 40 mg PO BID 11/22/21 [History] Insulin Aspart [NovoLOG Flexpen] 16 units SQ AC-BID@1200,1700 11/22/21 [History] Insulin Aspart [NovoLOG Flexpen] 22 units SQ AC-BRKFST 11/22/21 [History] Insulin Glargine,Hum.rec.anlog [Toujeo Solostar] 40 units SQ HS 11/22/21 [History] Losartan [Cozaar] 25 mg PO BID 11/22/21 [History] Meclizine HCl 25 mg PO TID PRN 11/22/21 [History] Tamsulosin HCl [Flomax] 0.4 mg PO DAILY 11/22/21 [History] amLODIPine [Norvasc] 10 mg PO DAILY 11/22/21 [History] hydroCHLOROthiazide 25 mg PO DAILY 11/22/21 [History] Aspirin 81 mg PO DAILY #30 tab 11/30/21 [Rx] Cholecalciferol [Vitamin D3 (25 Mcg = 1000 Iu)] 25 mcg PO DAILY #30 tab 11/30/21 [Rx] Divalproex ER [Depakote ER] 250 mg PO BID #60 tab 11/30/21 [Rx] Memantine [Namenda] 5 mg PO BID #60 tab 11/30/21 [Rx] QUEtiapine [SEROquel] 25 mg PO HS #30 tab 11/30/21 [Rx] Follow up Appointment(s)/Referral(s): Dominic Mccabe Senior [NON-STAFF] - As Needed Discharge/Stand Alone Forms: Assisted Living Facilities, Help In The Home
[2021-11-30 16:28] LABS: Glucose,Whole Blood 181 mg/dL (70-110)
== END 2021-11-30 20:22 | disposition still patient (30) | DRG 884 ==
LOC: EC 20:09 → 4SSUR 23:17
PROVIDERS: ADMIT Internal Medicine; ATTEND Internal Medicine
DX: F03.91 Unspecified dementia, unspecified severity, with behavioral disturbance (principal); G92.8 Other toxic encephalopathy; F05 Delirium due to known physiological condition; G91.9 Hydrocephalus, unspecified; E11.65 Type 2 diabetes mellitus with hyperglycemia; I10 Essential (primary) hypertension; Z68.31 Body mass index [BMI] 31.0-31.9, adult; S09.90XA Unspecified injury of head, initial encounter; R29.6 Repeated falls; W18.09XA Striking against other object with subsequent fall, initial encounter; E78.5 Hyperlipidemia, unspecified; E66.3 Overweight; I49.3 Ventricular premature depolarization; R39.15 Urgency of urination; Z91.81 History of falling; Y92.009 Unspecified place in unspecified non-institutional (private) residence as the place of occurrence of the external cause; Z79.899 Other long term (current) drug therapy; Z79.4 Long term (current) use of insulin; Z90.49 Acquired absence of other specified parts of digestive tract; Z83.3 Family history of diabetes mellitus; Z82.49 Family history of ischemic heart disease and other diseases of the circulatory system
CPT/HCPCS: 36415; 70450; 70551; 80048; 80053; 80306; 81003; 82140; 82306; 82607; 83036; 84443; 85025; 85610; 85730; 93005; 94760; 95816; 96360; 96361; 96372; 99285